=== PATIENT | male | born 1995 | race African-American/Black ===

== ENCOUNTER 2018-12-11 06:35 | Emergency (ER) | payer OTHER ==
[2018-12-11 06:43] VITALS: BP 122/79; PULSE 44; RESP 16; TEMP 97.9
[2018-12-11] MEDS ORDERED: ACET/COD 300 MG/30 MG STARTER PACK 6 TAB BTL PO STA (06:54)
--- NOTE | 2018-12-11 06:55 | ED ---
ENT HPI - General Chief complaint: Dental/Oral Stated complaint: swollen face Time Seen by Provider: 12/11/18 06:46 Source: patient, RN notes reviewed Mode of arrival: ambulatory Limitations: no limitations - History of Present Illness Initial comments: 23-year-old male presents emergency from chief complaint left lower dental pain. Patient states it started last 24 hours. He states that he did have a dental fracture happened a few months ago. Patient states that he is currently getting his dental insurance figured out. He reports no fevers chills he does admit to some swelling the left lower aspect. Patient denies any difficulty swallowing denies headache or dizziness no neck pain. Patient offers no other complaints. - Related Data Previous Rx's Medication Instructions Recorded Ibuprofen [Motrin] 600 mg PO Q8HR PRN #30 tab 12/11/18 Penicillin V Potassium [Pen Vee K] 500 mg PO QID #40 tablet 12/11/18 Allergies Allergy/AdvReac Type Severity Reaction Status Date / Time No Known Allergies Allergy Verified 12/11/18 06:43 Review of Systems ROS Statement: Those systems with pertinent positive or pertinent negative responses have been documented in the HPI. ROS Other: All systems not noted in ROS Statement are negative. Past Medical History Past Medical History: Asthma Additional Past Medical History / Comment(s): low heart rate History of Any Multi-Drug Resistant Organisms: None Reported Past Surgical History: No Surgical Hx Reported Past Psychological History: No Psychological Hx Reported Smoking Status: Never smoker Past Alcohol Use History: None Reported Past Drug Use History: Marijuana General Exam General appearance: alert, in no apparent distress Head exam: Present: atraumatic, normocephalic, normal inspection Eye exam: Present: normal appearance, PERRL, EOMI. Absent: scleral icterus, conjunctival injection, periorbital swelling ENT exam: Present: mucous membranes moist, TM's normal bilaterally, normal external ear exam. Absent: normal oropharynx (Dental fracture left lower, no drainable abscess mild swelling along the mandibular region no trismus) Neck exam: Present: normal inspection, full ROM. Absent: tenderness, meningismus, lymphadenopathy Respiratory exam: Present: normal lung sounds bilaterally. Absent: respiratory distress, wheezes, rales, rhonchi, stridor Cardiovascular Exam: Present: regular rate, normal rhythm, normal heart sounds. Absent: systolic murmur, diastolic murmur, rubs, gallop, clicks Course Vital Signs 12/11/18 06:38 Temperature 97.9 F Pulse Rate 44 L Respiratory 16 Rate Blood Pressure 122/79 O2 Sat by Pulse 100 Oximetry Medical Decision Making - Medical Decision Making 22-year-old male present emergency from for left lower dental pain. Patient does have notable dental fracture with mild swelling no abscess that is drainable. Patient be discharged with Pen-Vee K, ibuprofen. Patient follow-up with the dental clinic or local dentist. Disposition Clinical Impression: Fracture of tooth, Dental abscess Disposition: HOME SELF-CARE Condition: Stable Instructions (If sedation given, give patient instructions): Dental Abscess (ED) Additional Instructions: Please return to the Emergency Department if symptoms worsen or any other concerns. Prescriptions: Ibuprofen [Motrin] 600 mg PO Q8HR PRN #30 tab PRN Reason: Pain Penicillin V Potassium [Pen Vee K] 500 mg PO QID #40 tablet Is patient prescribed a controlled substance at d/c from ED?: No Referrals: None,Stated [Primary Care Provider] - 1-2 days Time of Disposition: 06:55
== END 2018-12-11 07:03 | disposition home or self-care (01) ==
LOC: EC 06:35
DX: S02.5XXA Fracture of tooth (traumatic), initial encounter for closed fracture (principal); K04.7 Periapical abscess without sinus
CPT/HCPCS: 99283

== ENCOUNTER 2019-03-13 20:26 | Emergency (ER) | payer OTHER ==
[2019-03-13 20:32] VITALS: BP 128/70; PULSE 57; RESP 18; TEMP 98.9
[2019-03-13] MEDS ORDERED: AMOXIC-POT CLAV 875MG STARTER 2 EACH TABLET PO STA (20:49)
[2019-03-13] MEDS ORDERED: ACET/COD 300 MG/30 MG STARTER PACK 6 TAB BTL PO STA (20:50)
--- NOTE | 2019-03-13 20:50 | ED ---
ENT HPI - General Chief complaint: Dental/Oral Stated complaint: Abcess tooth Time Seen by Provider: 03/13/19 20:38 Source: patient Mode of arrival: ambulatory Limitations: no limitations - History of Present Illness Initial comments: 23-year-old male presenting for chief complaint of left lower dental pain. Patient states a cracked a tooth a few days prior he states his dental pain since. Patient states that he now feels like his left lower jaw is swollen. Patient concern of developing abscess as this is happened in the past patient denies any swelling of the neck difficulty breathing rash swelling below the tongue fever or flulike symptoms. Patient denies any recent antibiotic use. Patient states he recently reinstated his insurance and now wants to get this taken care of. Remainder review of system negative - Related Data Previous Rx's Medication Instructions Recorded Ibuprofen [Motrin] 600 mg PO Q8HR PRN #30 tab 12/11/18 Penicillin V Potassium [Pen Vee K] 500 mg PO QID #40 tablet 12/11/18 Amoxicillin/Potassium Clav 1 tab PO Q12HR 10 Days #20 tab 03/13/19 [Augmentin 875-125 Tablet] Allergies Allergy/AdvReac Type Severity Reaction Status Date / Time No Known Allergies Allergy Verified 03/13/19 20:32 Review of Systems ROS Statement: Those systems with pertinent positive or pertinent negative responses have been documented in the HPI. ROS Other: All systems not noted in ROS Statement are negative. Past Medical History Past Medical History: Asthma Additional Past Medical History / Comment(s): low heart rate History of Any Multi-Drug Resistant Organisms: None Reported Past Surgical History: No Surgical Hx Reported Past Psychological History: No Psychological Hx Reported Smoking Status: Never smoker Past Alcohol Use History: None Reported Past Drug Use History: Marijuana General Exam - General Exam Comments Initial Comments: General: The patient is awake and alert, in no distress, and does not appear acutely ill. Eye: Pupils are equal, round and reactive to light, extra-ocular movements are intact. No nystagmus. There is normal conjunctiva bilaterally. No signs of icterus. Ears, nose, mouth and throat: There are moist mucous membranes and no oral lesions. Tooth #19 is cracked, pain to percussion, small area of swelling adjacent gum. no large fluctuance noted. No swelling or pain. The tenderness falling or painful ankle the mandible. Neck: The neck is supple, there is no tenderness or JVD. Cardiovascular: There is a regular rate and rhythm. No murmur, rub or gallop is appreciated. Respiratory: Lungs are clear to auscultation, respirations are non-labored, breath sounds are equal. No wheezes, stridor, rales, or rhonchi. Musculoskeletal: Normal ROM, no tenderness. Strength 5/5. Sensation intact. Pulses equal bilaterally 2+. Neurological: A&O x 3. CN II-XII intact grossly, There are no obvious motor or sensory deficits. Coordination appears grossly intact. Speech is normal. Skin: Skin is warm and dry and no rashes or lesions are noted. Psychiatric: Cooperative, appropriate mood & affect, normal judgment. Limitations: no limitations Course Vital Signs 03/13/19 20:30 Temperature 98.9 F Pulse Rate 57 L Respiratory 18 Rate Blood Pressure 128/70 O2 Sat by Pulse 100 Oximetry Medical Decision Making - Medical Decision Making 23-year-old male presented for left lower dental pain. Small area of swelling adjacent to tooth #19 attempted drainage however only small amount of blood. Concern for potential developing abscess. Patient shows no sign systemic signs of infection nor Franklin's angina. He appears well nontoxic and will be discharged with oral antibiotics and instruction to follow up with dentist within the next 2-3 days patient is agreeable to Plan discharge at this time Disposition Clinical Impression: Dental abscess Disposition: HOME SELF-CARE Condition: Good Instructions (If sedation given, give patient instructions): Dental Abscess (ED) Additional Instructions: Please use medication as discussed. Please follow-up with dentist in next 2-3 days. Please return to emergency room if the symptoms increase or worsen or for any other concerns, increased swelling, swelling below the tongue, of neck, difficulty breathing/swallowing, fevers or flu like symptoms. Prescriptions: Amoxicillin/Potassium Clav [Augmentin 875-125 Tablet] 1 tab PO Q12HR 10 Days #20 tab Is patient prescribed a controlled substance at d/c from ED?: No Referrals: None,Stated [Primary Care Provider] - 1-2 days Time of Disposition: 20:49
== END 2019-03-13 21:10 | disposition home or self-care (01) ==
LOC: EC 20:26
DX: K04.7 Periapical abscess without sinus (principal)
CPT/HCPCS: 41800; 99282

== ENCOUNTER 2019-04-30 10:44 | Observation (INO) | payer OTHER ==
[2019-04-30] MEDS ORDERED: SODIUM CHLORIDE 0.9% 1,000 ML IV STA ×2 (12:08→12:39)
[2019-04-30] MEDS ORDERED: ONDANSETRON 4 MG/2 ML VIAL IVP STA (12:08)
[2019-04-30] MEDS ORDERED: HYDROmorphone 1 MG/ML 1 ML SYRINGE IVP STA (12:08)
--- NOTE | 2019-04-30 12:14 | ED ---
General Adult HPI - General Chief complaint: Abdominal Pain Stated complaint: abd pain/vomiting Time Seen by Provider: 04/30/19 11:35 Source: patient, family, RN notes reviewed Mode of arrival: wheelchair Limitations: no limitations - History of Present Illness Initial comments: Patient is a pleasant 23-year-old male presenting to the emergency Department with nausea vomiting and abdominal discomfort. Onset of symptoms was last night. Symptoms have progressively worsened. Patient has abdominal discomfort, more so over the lower abdomen. Patient states there was discomfort in the car with any bumps. Discomfort does increase with movements. No fevers. No diarrhea. No history of similar symptoms previously. - Related Data Previous Rx's Medication Instructions Recorded Ibuprofen [Motrin] 600 mg PO Q8HR PRN #30 tab 12/11/18 Penicillin V Potassium [Pen Vee K] 500 mg PO QID #40 tablet 12/11/18 Amoxicillin/Potassium Clav 1 tab PO Q12HR 10 Days #20 tab 03/13/19 [Augmentin 875-125 Tablet] Allergies Allergy/AdvReac Type Severity Reaction Status Date / Time No Known Allergies Allergy Verified 03/13/19 20:32 Review of Systems ROS Statement: Those systems with pertinent positive or pertinent negative responses have been documented in the HPI. ROS Other: All systems not noted in ROS Statement are negative. Constitutional: Denies: fever, chills Eyes: Denies: eye pain ENT: Denies: ear pain Respiratory: Denies: cough Cardiovascular: Denies: chest pain Endocrine: Denies: fatigue Gastrointestinal: Reports: abdominal pain, nausea, vomiting. Denies: diarrhea Musculoskeletal: Denies: back pain Skin: Denies: rash Neurological: Denies: weakness Past Medical History Past Medical History: Asthma Additional Past Medical History / Comment(s): low heart rate History of Any Multi-Drug Resistant Organisms: None Reported Past Surgical History: No Surgical Hx Reported Past Psychological History: No Psychological Hx Reported Smoking Status: Never smoker Past Alcohol Use History: None Reported Past Drug Use History: Marijuana General Exam Limitations: no limitations General appearance: alert, in no apparent distress Head exam: Present: normocephalic Eye exam: Present: normal appearance, PERRL ENT exam: Present: normal oropharynx Neck exam: Present: normal inspection Respiratory exam: Present: normal lung sounds bilaterally Cardiovascular Exam: Present: regular rate, normal rhythm GI/Abdominal exam: Present: soft, tenderness (Mild diffuse tenderness, moderate right lower quadrant tenderness). Absent: distended, guarding, rebound, rigid Extremities exam: Present: normal inspection Neurological exam: Present: alert Psychiatric exam: Present: normal affect, normal mood Skin exam: Present: normal color Course Vital Signs 04/30/19 04/30/19 04/30/19 11:13 12:33 12:40 Temperature 97.3 F L Pulse Rate 42 L 47 L Respiratory 18 22 Rate Blood Pressure 138/79 159/78 O2 Sat by Pulse 99 100 100 Oximetry 04/30/19 13:00 Temperature Pulse Rate 56 L Respiratory 20 Rate Blood Pressure 139/91 O2 Sat by Pulse 100 Oximetry EKG Findings - EKG Comments: EKG Findings:: Sinus bradycardia with rate of 33. SC 184. QRS 104. QT 494. QTC 365. Normal axis. LVH criteria with repolarization changes. Medical Decision Making - Medical Decision Making Patient reevaluated and abdomen is less tender. Computed tomography scan does not make specific mention of appendix. Patient states he still has significant discomfort with standing upright and movement. Patient and family updated on results and plan. Case was discussed in detail with Dr. Gutiérrez, who will admit covering for hospital call and requests CBC in the morning. - Lab Data Result diagrams: 04/30/19 12:32 04/30/19 12:32 Lab Results 04/30/19 04/30/19 04/30/19 Range/Units 12:32 12:32 12:32 WBC 9.0 (3.8-10.6) k/uL RBC 4.84 (4.30-5.90) m/uL Hgb 14.0 (13.0-17.5) gm/dL Hct 43.6 (39.0-53.0) % MCV 89.9 (80.0-100.0) fL MCH 28.9 (25.0-35.0) pg MCHC 32.1 (31.0-37.0) g/dL RDW 12.8 (11.5-15.5) % Plt Count 227 (150-450) k/uL Neutrophils % 76 % Lymphocytes % 17 % Monocytes % 5 % Eosinophils % 1 % Basophils % 0 % Neutrophils # 6.8 (1.3-7.7) k/uL Lymphocytes # 1.5 (1.0-4.8) k/uL Monocytes # 0.4 (0-1.0) k/uL Eosinophils # 0.1 (0-0.7) k/uL Basophils # 0.0 (0-0.2) k/uL Poikilocytosis Slight PT (9.0-12.0) sec INR (<1.2) APTT (22.0-30.0) sec Sodium 142 (137-145) mmol/L Potassium 4.2 (3.5-5.1) mmol/L Chloride 105 (98-107) mmol/L Carbon Dioxide 25 (22-30) mmol/L Anion Gap 12 mmol/L BUN 12 (9-20) mg/dL Creatinine 0.79 (0.66-1.25) mg/dL Est GFR (CKD-EPI)AfAm >90 (>60 ml/min/1.73 sqM) Est GFR (CKD-EPI)NonAf >90 (>60 ml/min/1.73 sqM) Glucose 102 H (74-99) mg/dL Calcium 10.1 (8.4-10.2) mg/dL Total Bilirubin 1.0 (0.2-1.3) mg/dL AST 37 (17-59) U/L ALT 16 (4-49) U/L Alkaline Phosphatase 81 (38-126) U/L Total Protein 9.0 H (6.3-8.2) g/dL Albumin 5.3 H (3.5-5.0) g/dL Amylase 102 (30-110) U/L Lipase 73 (23-300) U/L Urine Color Yellow Urine Appearance Clear (Clear) Urine pH 6.0 (5.0-8.0) Ur Specific Standish 1.030 (1.001-1.035) Urine Protein Trace H (Negative) Urine Glucose (UA) Negative (Negative) Urine Ketones Negative (Negative) Urine Blood Negative (Negative) Urine Nitrite Negative (Negative) Urine Bilirubin Negative (Negative) Urine Urobilinogen 2.0 (<2.0) mg/dL Ur Leukocyte Esterase Negative (Negative) 04/30/19 Range/Units 12:32 WBC (3.8-10.6) k/uL RBC (4.30-5.90) m/uL Hgb (13.0-17.5) gm/dL Hct (39.0-53.0) % MCV (80.0-100.0) fL MCH (25.0-35.0) pg MCHC (31.0-37.0) g/dL RDW (11.5-15.5) % Plt Count (150-450) k/uL Neutrophils % % Lymphocytes % % Monocytes % % Eosinophils % % Basophils % % Neutrophils # (1.3-7.7) k/uL Lymphocytes # (1.0-4.8) k/uL Monocytes # (0-1.0) k/uL Eosinophils # (0-0.7) k/uL Basophils # (0-0.2) k/uL Poikilocytosis PT 10.9 (9.0-12.0) sec INR 1.1 (<1.2) APTT 24.9 (22.0-30.0) sec Sodium (137-145) mmol/L Potassium (3.5-5.1) mmol/L Chloride (98-107) mmol/L Carbon Dioxide (22-30) mmol/L Anion Gap mmol/L BUN (9-20) mg/dL Creatinine (0.66-1.25) mg/dL Est GFR (CKD-EPI)AfAm (>60 ml/min/1.73 sqM) Est GFR (CKD-EPI)NonAf (>60 ml/min/1.73 sqM) Glucose (74-99) mg/dL Calcium (8.4-10.2) mg/dL Total Bilirubin (0.2-1.3) mg/dL AST (17-59) U/L ALT (4-49) U/L Alkaline Phosphatase (38-126) U/L Total Protein (6.3-8.2) g/dL Albumin (3.5-5.0) g/dL Amylase (30-110) U/L Lipase (23-300) U/L Urine Color Urine Appearance (Clear) Urine pH (5.0-8.0) Ur Specific Standish (1.001-1.035) Urine Protein (Negative) Urine Glucose (UA) (Negative) Urine Ketones (Negative) Urine Blood (Negative) Urine Nitrite (Negative) Urine Bilirubin (Negative) Urine Urobilinogen (<2.0) mg/dL Ur Leukocyte Esterase (Negative) - Radiology Data Radiology results: report reviewed (Computed tomography scan shows small amount of fluid in the pelvis. Moderate colonic fecal stasis.) Disposition Clinical Impression: Abdominal pain Disposition: ADMITTED IP TO THIS HOSP Is patient prescribed a controlled substance at d/c from ED?: No Referrals: None,Stated [Primary Care Provider] - 1-2 days Decision Time: 15:31
[2019-04-30 13:02] LABS: Basophils % (A) 0 %; Eosinophils # (A) 0.1 k/uL (0-0.7); Eosinophils % (A) 1 %; HCT 43.6 % (39.0-53.0); Lymphocytes # (A) 1.5 k/uL (1.0-4.8); Lymphocytes % (A) 17 %; MCH 28.9 pg (25.0-35.0); MCHC 32.1 g/dL (31.0-37.0); MCV 89.9 fL (80.0-100.0); Monocytes # (A) 0.4 k/uL (0-1.0); Monocytes % (A) 5 %; Neutrophils # (A) 6.8 k/uL (1.3-7.7); Neutrophils % (A) 76 %; Platelet Count 227 k/uL (150-450); Poikilocytosis Slight; RBC 4.84 m/uL (4.30-5.90); RDW 12.8 % (11.5-15.5)
[2019-04-30 13:08] LABS: Appearance,Urine Clear (Clear); Bilirubin,Urine Negative (Negative); Blood,Urine Negative (Negative); Color,Urine Yellow; Glucose,Urine (UA) Negative (Negative); Ketones,Urine Negative (Negative); Leukocyte Esterase,Urine Negative (Negative); Nitrite,Urine Negative (Negative); Protein,Urine Trace (Negative)
[2019-04-30 13:10] LABS: INR 1.1 (<1.2); Partial Thromboplastin Time 24.9 sec (22.0-30.0); Prothrombin Time 10.9 sec (9.0-12.0)
[2019-04-30 13:11] LABS: African American GFR (CKD) >90 (>60 ml/min/1.73 sqM); Anion Gap 12 mmol/L; Blood Urea Nitrogen 12 mg/dL (9-20); Carbon Dioxide 25 mmol/L (22-30); Chloride 105 mmol/L (98-107); Glucose 102 mg/dL (74-99); Potassium 4.2 mmol/L (3.5-5.1); Sodium 142 mmol/L (137-145)
[2019-04-30 13:12] LABS: ALT 16 U/L (4-49); AST 37 U/L (17-59); Albumin 5.3 g/dL (3.5-5.0); Alkaline Phosphatase 81 U/L (38-126); Amylase 102 U/L (30-110); Calcium 10.1 mg/dL (8.4-10.2); Non-African American GFR(CKD) >90 (>60 ml/min/1.73 sqM)
--- NOTE | 2019-04-30 14:19 | CT ---
EXAMINATION TYPE: CT abdomen pelvis w con DATE OF EXAM: 04/30/2019 COMPARISON: Abdomen and pelvis of 01/21/2010. HISTORY: Pain and vomiting CT DLP: 654.9 mGycm, Automated Exposure Control for Dose Reduction was Utilized. CONTRAST: CT scan of the abdomen and pelvis is performed without oral but with IV Contrast, patient injected wi th 100 mL of Isovue 300. FINDINGS: LUNG BASES: No significant abnormality is appreciated. LIVER/GB: No significant abnormality is appreciated. PANCREAS: No significant abnormality is seen. SPLEEN: No significant abnormality is seen. ADRENALS: No significant abnormality is seen. KIDNEYS: No significant abnormality is seen. BOWEL: Suboptimal evaluation of bowel in this patient has virtually no intra-abdominal fat and lack o f enteric contrast. No suspicious small or large bowel dilatation. Stomach is poorly distended and th us suboptimally evaluated. [id number] prominence of fecal material in the right and proximal tr ansverse colon. [id number] prominence of fecal material in the sigmoid colon. PROSTATE/SEMINAL VESICLES: No gross abnormality seen. LYMPH NODES: No greater than 1cm abdominal or pelvic lymph nodes are appreciated. OSSEOUS STRUCTURES: No significant abnormality is seen. OTHER: Small amount of free fluid in the pelvis axial image 66 of uncertain etiology. IMPRESSION: Small amount of free fluid in the pelvis of uncertain etiology on current study. Overall nonobstructive bowel gas pattern. [id number] diffuse colonic fecal stasis is thought present. C orrelate clinically.
[2019-04-30] MEDS ORDERED: HYDROmorphone 0.5 MG/0.5 ML SYRINGE IVP PRN (15:31)
[2019-04-30] MEDS ORDERED: NALOXONE 0.4 MG/ML 1 ML VIAL IV PRN (15:31)
[2019-04-30] MEDS ORDERED: ONDANSETRON 4 MG/2 ML VIAL IVP PRN (15:31)
[2019-04-30] MEDS ORDERED: HYDROmorphone 1 MG/ML 1 ML SYRINGE IVP PRN (15:31)
--- NOTE | 2019-04-30 16:52 | P.GSHP ---
History of Present Illness H&P Date: 04/30/19 Chief Complaint: Abdominal pain The 23-year-old male who has complaints of abdominal pain. Patient states he has pain mainly in the periumbilical area. Patient awake CAT scan showed evidence of fecal retention. States his pain is a 6-8 out of 10. He's been admitted to the hospital for observation. Past Medical History Past Medical History: Asthma Additional Past Medical History / Comment(s): low heart rate History of Any Multi-Drug Resistant Organisms: None Reported Past Surgical History: No Surgical Hx Reported Past Psychological History: No Psychological Hx Reported Smoking Status: Never smoker Past Alcohol Use History: None Reported Past Drug Use History: Marijuana Medications and Allergies Home Medications Medication Instructions Recorded Confirmed Type No Known Home Medications 04/30/19 04/30/19 History Allergies Allergy/AdvReac Type Severity Reaction Status Date / Time No Known Allergies Allergy Verified 04/30/19 16:02 Surgical - Exam Vital Signs Temp Pulse Resp BP Pulse Ox 97.3 F L 42 L 18 138/79 99 04/30/19 11:13 04/30/19 11:13 04/30/19 11:13 04/30/19 11:13 04/30/19 11:13 - General well developed, well nourished, no distress - Eyes PERRL - ENT normal pinna - Neck no masses - Respiratory normal expansion - Cardiovascular Rhythm: regular - Abdomen Mild periumbilical pain Abdomen: soft Results - Labs 04/30/19 12:32 04/30/19 12:32 Abnormal Lab Results - Last 24 Hours (Table) 04/30/19 04/30/19 Range/Units 12:32 12:32 Glucose 102 H (74-99) mg/dL Total Protein 9.0 H (6.3-8.2) g/dL Albumin 5.3 H (3.5-5.0) g/dL Urine Protein Trace H (Negative) Diabetes panel 04/30/19 Range/Units 12:32 Sodium 142 (137-145) mmol/L Potassium 4.2 (3.5-5.1) mmol/L Chloride 105 (98-107) mmol/L Carbon Dioxide 25 (22-30) mmol/L BUN 12 (9-20) mg/dL Creatinine 0.79 (0.66-1.25) mg/dL Glucose 102 H (74-99) mg/dL Calcium 10.1 (8.4-10.2) mg/dL AST 37 (17-59) U/L ALT 16 (4-49) U/L Alkaline Phosphatase 81 (38-126) U/L Total Protein 9.0 H (6.3-8.2) g/dL Albumin 5.3 H (3.5-5.0) g/dL Calcium panel 04/30/19 Range/Units 12:32 Calcium 10.1 (8.4-10.2) mg/dL Albumin 5.3 H (3.5-5.0) g/dL Pituitary panel 04/30/19 Range/Units 12:32 Sodium 142 (137-145) mmol/L Potassium 4.2 (3.5-5.1) mmol/L Chloride 105 (98-107) mmol/L Carbon Dioxide 25 (22-30) mmol/L BUN 12 (9-20) mg/dL Creatinine 0.79 (0.66-1.25) mg/dL Glucose 102 H (74-99) mg/dL Calcium 10.1 (8.4-10.2) mg/dL Adrenal panel 04/30/19 Range/Units 12:32 Sodium 142 (137-145) mmol/L Potassium 4.2 (3.5-5.1) mmol/L Chloride 105 (98-107) mmol/L Carbon Dioxide 25 (22-30) mmol/L BUN 12 (9-20) mg/dL Creatinine 0.79 (0.66-1.25) mg/dL Glucose 102 H (74-99) mg/dL Calcium 10.1 (8.4-10.2) mg/dL Total Bilirubin 1.0 (0.2-1.3) mg/dL AST 37 (17-59) U/L ALT 16 (4-49) U/L Alkaline Phosphatase 81 (38-126) U/L Total Protein 9.0 H (6.3-8.2) g/dL Albumin 5.3 H (3.5-5.0) g/dL Assessment and Plan Assessment: Abdominal pain of uncertain etiology.. Patient will be observed overnight.
[2019-04-30] MEDS: SODIUM CHLORIDE 0.9% 1,000 ML IV SCH (17:05)
[2019-04-30 18:07] LABS: Glucose,Whole Blood 95 mg/dL (75-99)
[2019-04-30] MEDS: ONDANSETRON 4 MG/2 ML VIAL IVP PRN (22:46)
[2019-04-30 23:16] VITALS: RESP 16
[2019-05-01] MEDS: SODIUM CHLORIDE 0.9% 1,000 ML IV SCH (05:45)
[2019-05-01 06:09] VITALS: BP 102/61; PULSE 46; TEMP 98.4
[2019-05-01] MEDS: ONDANSETRON 4 MG/2 ML VIAL IVP PRN (08:19)
[2019-05-01] MEDS ORDERED: PANTOPRAZOLE 40 MG/10 ML VIAL IV SCH (09:00)
[2019-05-01] MEDS ORDERED: BISACODYL 10 MG SUPP RECTAL STA (10:19)
[2019-05-01] MEDS ORDERED: LACTULOSE 20 GM/30 ML CUP PO ONE (10:19)
--- NOTE | 2019-05-01 10:59 | P.DS ---
Providers Date of admission: 04/30/19 15:33 Expected date of discharge: 05/01/19 Attending physician: Jose Juan Liu Primary care physician: Stated None Hospital Course: 23-year-old male who presented to the emergency room with a chief complaint of abdominal pain. CT abdomen and pelvis was performed revealing fecal stasis but no acute abnormality. Patient was started on a clear liquid diet and advanced as tolerated. He received a Dulcolax suppository and lactulose for fecal retention during his hospitalization. He was deemed stable for discharge home per Dr. Liu. He is to follow-up outpatient. Please see EMR for further hospital course details. Discharge diagnosis 1. Abdominal pain 2. Fecal stasis Nurse practitioner note has been reviewed by physician. Signing provider agrees with the documented findings, assessment, and plan of care. Plan - Discharge Summary Discharge Rx Participant: No New Discharge Prescriptions: No Action No Known Home Medications Discharge Medication List No Known Home Medications 04/30/19 [History] Follow up Appointment(s)/Referral(s): None,Stated [Primary Care Provider] - 1-2 days Jose Juan Liu MD [STAFF PHYSICIAN] - As Needed
== END 2019-05-01 12:12 | disposition home or self-care (01) ==
LOC: EC 10:44 → 6NMEDSUR 15:33
PROVIDERS: ADMIT Surgery; ATTEND Surgery
DX: R10.9 Unspecified abdominal pain (principal); K59.8 Other specified functional intestinal disorders; J45.909 Unspecified asthma, uncomplicated
CPT/HCPCS: 96376 ×2; 96361 ×2; 96375 ×2; 96374; 99285; 36415; 93005; 80053; 82150; 83690; 85025; 85610; 85730; 81003; 74177; G0378 ×2; J2405 ×2; J1170; C9113; Q9967

== ENCOUNTER 2019-12-11 09:06 | Emergency (ER) | payer OTHER ==
[2019-12-11 09:16] VITALS: BP 137/80; PULSE 50; RESP 18; TEMP 97
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
== END 2019-12-11 09:31 | disposition home or self-care (01) ==
LOC: EC 09:06
DX: L70.9 Acne, unspecified (principal)
CPT/HCPCS: 99283

== ENCOUNTER 2020-02-28 13:16 | Emergency (ER) | payer OTHER ==
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
[2020-02-28 14:04] LABS: Basophils # (A) 0.1 k/uL (0-0.2); Basophils % (A) 1 %; Eosinophils % (A) 1 %; HCT 41.7 % (39.0-53.0); HGB 14.3 gm/dL (13.0-17.5); Lymphocytes # (A) 2.1 k/uL (1.0-4.8); Lymphocytes % (A) 36 %; MCH 30.2 pg (25.0-35.0); MCHC 34.2 g/dL (31.0-37.0); MCV 88.3 fL (80.0-100.0); Mean Platelet Volume 7.5; Monocytes # (A) 0.5 k/uL (0-1.0); Monocytes % (A) 8 %; Neutrophils # (A) 3.1 k/uL (1.3-7.7); Neutrophils % (A) 53 %; Platelet Count 247 k/uL (150-450); RBC 4.73 m/uL (4.30-5.90); RDW 12.5 % (11.5-15.5); WBC 5.9 k/uL (3.8-10.6)
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
[2020-02-28 14:12] LABS: ALT 18 U/L (4-49); AST 38 U/L (17-59); African American GFR (CKD) >90 (>60 ml/min/1.73 sqM); Albumin 4.9 g/dL (3.5-5.0); Alcohol <10 mg/dL; Alkaline Phosphatase 73 U/L (38-126); Anion Gap 9 mmol/L; Blood Urea Nitrogen 8 mg/dL (9-20); Carbon Dioxide 24 mmol/L (22-30); Chloride 105 mmol/L (98-107); Creatine Kinase 824 U/L (55-170); Glucose 100 mg/dL (74-99); INR 1.1 (<1.2); Non-African American GFR(CKD) >90 (>60 ml/min/1.73 sqM); Partial Thromboplastin Time 24.2 sec (22.0-30.0); Potassium 4.2 mmol/L (3.5-5.1); Prothrombin Time 11.1 sec (9.0-12.0); Sodium 138 mmol/L (137-145); Total Bilirubin 0.8 mg/dL (0.2-1.3); Total Protein 8.3 g/dL (6.3-8.2)
[2020-02-28] MEDS ORDERED: MORPHINE SULFATE 4 MG/ML SYRINGE IVP STA ×2 (14:14→16:10)
[2020-02-28] MEDS ORDERED: DIPH,PERTUS(ACELL)TETVAC-LF 0.5 ML VIAL IM ONE (14:22)
[2020-02-28] MEDS ORDERED: ONDANSETRON 4 MG/2 ML VIAL IVP STA (14:41)
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
[2020-02-28] MEDS ORDERED: KETOROLAC 15 MG/ML 1 ML VIAL IVP STA (16:10)
[2020-02-28 16:18] LABS: Appearance,Urine Clear (Clear); Bilirubin,Urine Negative (Negative); Blood,Urine Negative (Negative); Color,Urine Light Yellow; Glucose,Urine (UA) Negative (Negative); Ketones,Urine Negative (Negative); Leukocyte Esterase,Urine Negative (Negative); Nitrite,Urine Negative (Negative); PH, Urine 7.5 (5.0-8.0); Protein,Urine Negative (Negative); Specific Gravity,Urine 1.029 (1.001-1.035); Urobilinogen,Urine <2.0 mg/dL (<2.0)
[2020-02-28 16:27] LABS: Cocaine Screen,Urine Not Detected (NotDetected); Opiate Screen,Urine Detected (NotDetected); Phencyclidine Screen,Urine Not Detected (NotDetected); Urn Cannabinoid Scrn Detected (NotDetected)
[2020-02-28 16:28] LABS: Amphetamine Screen,Urine Not Detected (NotDetected); Barbiturate Screen,Urine Not Detected (NotDetected); Benzodiazepines Screen,Urine Not Detected (NotDetected); Methadone Screen, Urine Not Detected (NotDetected); Oxycodone Screen, Urine Not Detected (NotDetected); Tricyclic Antidepressant,Urine Not Detected (NotDetected)
[2020-02-28] MEDS ORDERED: BACITRACIN OINT 1 EACH PACKET TOPICAL ONE (16:40)
[2020-02-28] MEDS ORDERED: ACET/COD 300 MG/30 MG STARTER PACK 6 TAB BTL PO STA (16:42)
[2020-02-28] MEDS ORDERED: IBUPROFEN 600 MG STARTER PACK 4 TAB BTL PO STA (16:42)
[2020-02-28] MEDS ORDERED: Acetaminophen-Codeine 300-30mg TAB PO STA (16:42)
[2020-02-28 21:15] VITALS: BP 140/80; PULSE 64; RESP 18; TEMP 98.4
== END 2020-02-28 17:00 | disposition home or self-care (01) ==
LOC: EC 13:16
DX: S06.9X1A Unspecified intracranial injury with loss of consciousness of 30 minutes or less, initial encounter (principal); M25.532 Pain in left wrist; M25.561 Pain in right knee; Z23 Encounter for immunization; V27.4XXA Motorcycle driver injured in collision with fixed or stationary object in traffic accident, initial encounter; Y92.410 Unspecified street and highway as the place of occurrence of the external cause
CPT/HCPCS: 36415; 93005; 80053; 82550; 84484; 85025; 85610; 85730; 81003; 80306; 80320; 73130; 72170; 73080; 73110; 73562; 71045; 72125; 72131; 70450; 74177; 90715; 99285; 96374; 96375 ×2; 96376; 90471; 29125; J2270; J2405; J1885; Q9967

== ENCOUNTER 2020-07-21 10:56 | Emergency (ER) | payer OTHER ==
[2020-07-21 11:22] VITALS: BP 126/95; PULSE 68; RESP 18; TEMP 98.4
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
== END 2020-07-21 12:44 | disposition home or self-care (01) ==
LOC: EC 10:56
DX: Z20.822 Contact with and (suspected) exposure to COVID-19 (principal); J45.909 Unspecified asthma, uncomplicated; F12.90 Cannabis use, unspecified, uncomplicated
CPT/HCPCS: 87635; 99283

== ENCOUNTER 2020-08-08 00:45 | Emergency (ER) | payer BC, OTHER ==
[2020-08-08 00:50] VITALS: BP 135/77; PULSE 65; RESP 20; TEMP 98.2
[2020-08-08] MEDS ORDERED: IBUPROFEN 800 MG TAB PO STA (01:14)
[2020-08-08] MEDS ORDERED: AMOXIC-POT CLAV 875-125MG 1 EACH TAB PO STA (01:14)
--- NOTE | 2020-08-08 01:14 | ED ---
ENT HPI - General Chief complaint: Dental/Oral Stated complaint: Facial swelling Time Seen by Provider: 08/08/20 00:59 Source: patient Mode of arrival: ambulatory Limitations: no limitations - History of Present Illness Initial comments: 24-year-old male presents emergency Department with a chief complaint abdominal pain times several days. States about 1 month ago he try to open a bottle and fractured his tooth now he has developed an infection in the area. Patient reports he also developed mild left-sided swelling in the region. States the infection is located in the left lower region. Denies any fevers or chills. Area is tender to touch. He has not seen a dentist and was symptom. Denies fevers chills. Not diabetic. - Related Data Previous Rx's Medication Instructions Recorded Amoxicillin/Potassium Clav 1 tab PO Q12HR #20 tab 08/08/20 [Augmentin 875-125 Tablet] Allergies Allergy/AdvReac Type Severity Reaction Status Date / Time No Known Allergies Allergy Verified 08/08/20 00:50 Review of Systems ROS Statement: Those systems with pertinent positive or pertinent negative responses have been documented in the HPI. ROS Other: All systems not noted in ROS Statement are negative. Past Medical History Past Medical History: Asthma Additional Past Medical History / Comment(s): low heart rate History of Any Multi-Drug Resistant Organisms: None Reported Past Surgical History: No Surgical Hx Reported Past Anesthesia/Blood Transfusion Reactions: No Reported Reaction Past Psychological History: No Psychological Hx Reported Smoking Status: Never smoker Past Alcohol Use History: Occasional Past Drug Use History: Marijuana General Exam Limitations: no limitations General appearance: alert, in no apparent distress Head exam: Present: atraumatic, normocephalic, normal inspection Eye exam: Present: normal appearance, PERRL, EOMI Pupils: Present: normal accommodation ENT exam: Present: normal exam, mucous membranes moist. Absent: normal oropharynx (Multiple dental caries. Partially fractured tooth #21 with surrounding erythema and mild swelling. No signs of an abscess) Neck exam: Present: normal inspection, full ROM. Absent: tenderness Respiratory exam: Present: normal lung sounds bilaterally. Absent: respiratory distress Cardiovascular Exam: Present: regular rate, normal rhythm, normal heart sounds Extremities exam: Present: normal inspection, full ROM, normal capillary refill. Absent: tenderness Back exam: Present: normal inspection, full ROM. Absent: tenderness Neurological exam: Present: alert, oriented X3, normal gait Psychiatric exam: Present: normal affect, normal mood Skin exam: Present: warm, dry, intact, normal color Course Vital Signs 08/08/20 00:48 Temperature 98.2 F Pulse Rate 65 Respiratory 20 Rate Blood Pressure 135/77 O2 Sat by Pulse 100 Oximetry Medical Decision Making - Medical Decision Making 24-year-old male presents to emergency Department with the chief complaint dental pain. No signs of an abscess. Tooth #20 one partially fractured and infected. He will be started on Augmentin. Given him ibuprofen in the ED. Give him contact information for local [facility]. Return parameters were thoroughly discussed with patient about sending agreeable. Case discussed with Disposition Clinical Impression: Dental caries, Toothache Disposition: HOME SELF-CARE Condition: Stable Instructions (If sedation given, give patient instructions): Toothache (ED) Additional Instructions: Please return to the Emergency Department if symptoms worsen or any other concerns. Follow with a dentist Prescriptions: Amoxicillin/Potassium Clav [Augmentin 875-125 Tablet] 1 tab PO Q12HR #20 tab Is patient prescribed a controlled substance at d/c from ED?: No Referrals: None,Stated [Primary Care Provider] - 1-2 days Time of Disposition: 01:15
== END 2020-08-08 01:36 | disposition home or self-care (01) ==
LOC: EC 00:45
DX: K02.9 Dental caries, unspecified (principal); J45.909 Unspecified asthma, uncomplicated; F12.90 Cannabis use, unspecified, uncomplicated
CPT/HCPCS: 99283

== ENCOUNTER 2021-03-08 18:56 | Emergency (ER) | payer OTHER ==
[2021-03-08 19:01] VITALS: BP 122/67; PULSE 64; RESP 16; TEMP 97.9
[2021-03-08] MEDS ORDERED: KETOROLAC 30 MG/ML 1 ML VIAL IM STA (19:08)
--- NOTE | 2021-03-08 19:32 | XR ---
EXAMINATION TYPE: XR forearm LT DATE OF EXAM: 03/08/2021 COMPARISON: NONE HISTORY: Fall. Wrist pain TECHNIQUE: 2 views FINDINGS: There is acute transverse fracture distal radial metaphysis. This is 1.5 cm from the wrist joint. There is no significant displacement. There is no dislocation. Distal ulna is intact. Carpal b ones are intact. IMPRESSION: Acute nondisplaced transverse fracture distal radius.
--- NOTE | 2021-03-08 19:33 | XR ---
EXAMINATION TYPE: XR wrist complete LT DATE OF EXAM: 03/08/2021 COMPARISON: NONE HISTORY: Fall. Pain TECHNIQUE: 3 views FINDINGS: Carpal bones are intact. Proximal metacarpals are intact. There is acute transverse nondisplaced fracture distal radial metaphysis. There is no dislocation. Di stal ulna is intact. IMPRESSION: Acute nondisplaced transverse fracture distal radius.
--- NOTE | 2021-03-08 19:34 | ED ---
General Adult HPI - General Chief complaint: Extremity Injury, Upper Stated complaint: wrist injury Time Seen by Provider: 03/08/21 19:04 Source: patient, RN notes reviewed, old records reviewed Mode of arrival: ambulatory Limitations: no limitations - History of Present Illness Initial comments: 25-year-old male with fall, left wrist injury. Patient was skateboarding, fell onto his outstretched left forearm. He had immediate pain in the wrist. He denies head or neck trauma. He denies elbow or shoulder pain. No chest or abdominal pain. Patient is otherwise healthy. - Related Data Previous Rx's Medication Instructions Recorded Amoxicillin/Potassium Clav 1 tab PO Q12HR #20 tab 08/08/20 [Augmentin 875-125 Tablet] Ibuprofen [Motrin] 600 mg PO Q8HR PRN #24 tab 03/08/21 Allergies Allergy/AdvReac Type Severity Reaction Status Date / Time No Known Allergies Allergy Verified 03/08/21 19:01 Review of Systems ROS Statement: Those systems with pertinent positive or pertinent negative responses have been documented in the HPI. ROS Other: All systems not noted in ROS Statement are negative. Past Medical History Past Medical History: Asthma Additional Past Medical History / Comment(s): low heart rate History of Any Multi-Drug Resistant Organisms: None Reported Past Surgical History: No Surgical Hx Reported Past Anesthesia/Blood Transfusion Reactions: No Reported Reaction Past Psychological History: No Psychological Hx Reported Smoking Status: Never smoker Past Alcohol Use History: Occasional Past Drug Use History: Marijuana General Exam Limitations: no limitations General appearance: alert, in no apparent distress Head exam: Present: atraumatic, normocephalic Eye exam: Present: normal appearance, PERRL ENT exam: Present: normal exam Neck exam: Present: normal inspection. Absent: tenderness, meningismus Respiratory exam: Present: normal lung sounds bilaterally. Absent: respiratory distress, wheezes Cardiovascular Exam: Present: regular rate, normal rhythm GI/Abdominal exam: Present: soft. Absent: distended, tenderness, guarding, rebound Extremities exam: Present: other (Left upper extremity: Distal pulses are intact, normal range of motion of the digits, normal cap refill. There is bony tenderness over the distal radius with soft tissue swelling) Neurological exam: Present: alert, oriented X3 Course Vital Signs 03/08/21 18:59 Temperature 97.9 F Pulse Rate 64 Respiratory 16 Rate Blood Pressure 122/67 O2 Sat by Pulse 100 Oximetry Procedures - Orthopedic Splinting/Casting Injury #1 Side: left Upper Extremity Injury Location: short arm Upper Extremity Immobilizer: sugar tong splint, synthetic pre-padded splint, fiberglass cast Other Orthopedic Equipment: other (Sling) Additional Comments: Patient is neurovascularly intact both pre-and post-splinting. Medical Decision Making - Medical Decision Making 25-year-old male with a skateboarding injury to the left wrist. X-rays of the forearm and wrist are performed which showed a nondisplaced fracture of the distal radius. Patient is placed in a splint in the emergency department. He is prescribed anti-inflammatories. He will elevate and ice the extremity. He will follow-up with orthopedics. Disposition Clinical Impression: Distal radius fracture, left Disposition: HOME SELF-CARE Condition: Good Instructions (If sedation given, give patient instructions): Wrist Fracture in Adults (ED) Prescriptions: Ibuprofen [Motrin] 600 mg PO Q8HR PRN #24 tab PRN Reason: Pain Is patient prescribed a controlled substance at d/c from ED?: No Referrals: None,Stated [Primary Care Provider] - 1-2 days Wolf Moses DO [Doctor of Osteopathic Medicine] - 1-2 days Time of Disposition: 19:32
== END 2021-03-08 19:40 | disposition home or self-care (01) ==
LOC: EC 18:56
DX: S52.502A Unspecified fracture of the lower end of left radius, initial encounter for closed fracture (principal); J45.909 Unspecified asthma, uncomplicated; F12.90 Cannabis use, unspecified, uncomplicated; V00.131A Fall from skateboard, initial encounter; Y93.51 Activity, roller skating (inline) and skateboarding
CPT/HCPCS: 99283; 96372; 29125; 73090; 73110; J1885

== ENCOUNTER 2021-03-12 15:27 | Emergency (ER) | payer OTHER ==
[2021-03-12 16:27] VITALS: BP 127/71; PULSE 52; RESP 16; TEMP 98
--- NOTE | 2021-03-12 17:08 | ED ---
Recheck HPI - General Chief Complaint: Recheck/Abnormal Lab/Rx Stated Complaint: L arm injury Time Seen by Provider: 03/12/21 17:07 Source: patient Mode of arrival: ambulatory Limitations: no limitations - History of Present Illness Initial Comments: 25-year-old male patient presents to the emergency department today to have a splint placed on his left wrist. He was seen and evaluated of a couple of days ago was diagnosed with a fractured radius. States his was splint got wet today and he was unable to reapply it. States he does have an orthopedic appointment tomorrow. Denies any new injury. Does report intermittent numbness tingling to the hand. Denies difficulty with movement. Denies taking anything for pain today. Denies any other injuries or concerns. - Related Data Previous Rx's Medication Instructions Recorded Amoxicillin/Potassium Clav 1 tab PO Q12HR #20 tab 08/08/20 [Augmentin 875-125 Tablet] Ibuprofen [Motrin] 600 mg PO Q8HR PRN #24 tab 03/08/21 Allergies Allergy/AdvReac Type Severity Reaction Status Date / Time No Known Allergies Allergy Verified 03/12/21 16:27 Review of Systems ROS Statement: Those systems with pertinent positive or pertinent negative responses have been documented in the HPI. ROS Other: All systems not noted in ROS Statement are negative. Past Medical History Past Medical History: Asthma Additional Past Medical History / Comment(s): low heart rate History of Any Multi-Drug Resistant Organisms: None Reported Past Surgical History: No Surgical Hx Reported Past Anesthesia/Blood Transfusion Reactions: No Reported Reaction Past Psychological History: No Psychological Hx Reported Smoking Status: Never smoker Past Alcohol Use History: Occasional Past Drug Use History: Marijuana General Exam Limitations: no limitations General appearance: alert, in no apparent distress, other (This is a well- developed, well-nourished adult male in no acute distress.) Respiratory exam: Present: normal lung sounds bilaterally. Absent: respiratory distress, wheezes, rales, rhonchi, stridor Cardiovascular Exam: Present: normal rhythm, bradycardia, normal heart sounds. Absent: systolic murmur, diastolic murmur, rubs, gallop, clicks Extremities exam: Present: full ROM, tenderness (Distal radius and ulna), normal capillary refill, other (Mild soft tissue swelling surrounding the left wrist. Skin to the hand is warm and dry. Cap refill less than 3 seconds. Radial p ulses 2+. Full range of motion is intact. Radial, medial, ulnar nerve intact.). Absent: normal inspection, pedal edema, joint swelling, calf tenderness Neurological exam: Present: alert, oriented X3, CN II-XII intact Psychiatric exam: Present: normal affect, normal mood Skin exam: Present: warm, dry, intact, normal color. Absent: rash Course Vital Signs 03/12/21 16:24 Temperature 98 F Pulse Rate 52 L Respiratory 16 Rate Blood Pressure 127/71 O2 Sat by Pulse 98 Oximetry Procedures - Orthopedic Splinting/Casting Injury #1 Side: left Upper Extremity Injury Location: short arm, wrist Upper Extremity Immobilizer: sling/shoulder immobilizer, sugar tong splint, Heladio wrap, synthetic pre-padded splint Medical Decision Making - Medical Decision Making 25-year-old male patient presented for reapplication of splint to the left wrist. Tolerated splint application without difficulty. Neurovascular status was intact. He'll be discharged with orthopedics tomorrow as he has planned. Return parameters were discussed in detail. He verbalizes understanding and agrees with this plan. My attending is Dr. Zepeda. Disposition Clinical Impression: Left radial fracture Disposition: HOME SELF-CARE Condition: Good Instructions (If sedation given, give patient instructions): Wrist Fracture in Adults (ED), Splint Care (ED) Additional Instructions: Follow-up with orthopedics tomorrow as you have planned. Return for any new, worsening, or concerning symptoms. Is patient prescribed a controlled substance at d/c from ED?: No Referrals: None,Stated [Primary Care Provider] - 1-2 days Time of Disposition: 17:08
== END 2021-03-12 17:21 | disposition home or self-care (01) ==
LOC: EC 15:27
DX: S52.502A Unspecified fracture of the lower end of left radius, initial encounter for closed fracture (principal); J45.909 Unspecified asthma, uncomplicated; F12.90 Cannabis use, unspecified, uncomplicated; X58.XXXA Exposure to other specified factors, initial encounter
CPT/HCPCS: 29125; 99283

== ENCOUNTER 2022-04-10 12:40 | Emergency (ER) | payer OTHER ==
[2022-04-10 12:50] VITALS: BP 125/60; PULSE 56; RESP 16; TEMP 98.9
--- NOTE | 2022-04-10 12:56 | ED ---
General Adult HPI - General Chief complaint: Urogenital Stated complaint: Groin Pain Time Seen by Provider: 04/10/22 12:50 Source: patient Mode of arrival: ambulatory Limitations: no limitations - History of Present Illness Initial comments: This note is for advanced triage purposes only. It is not meant to be a comprehensive history/physical: 26 year old male presents to the emergency department with a chief complaint of testicle pain x 5 years. Today he reports that "the muscle" is painful. He has not tried anything for his symptoms. He was recently seen at [facility] for the same. He denies any trauma or periods of long sitting. He denies scrotal swelling, dysuria, hematuria. - Related Data Previous Rx's Medication Instructions Recorded Amoxicillin/Potassium Clav 1 tab PO Q12HR #20 tab 08/08/20 [Augmentin 875-125 Tablet] Ibuprofen [Motrin] 600 mg PO Q8HR PRN #24 tab 03/08/21 Allergies Allergy/AdvReac Type Severity Reaction Status Date / Time No Known Allergies Allergy Verified 04/10/22 12:46 Review of Systems ROS Statement: Those systems with pertinent positive or pertinent negative responses have been documented in the HPI. ROS Other: All systems not noted in ROS Statement are negative. Past Medical History Past Medical History: Asthma Additional Past Medical History / Comment(s): low heart rate History of Any Multi-Drug Resistant Organisms: None Reported Past Surgical History: No Surgical Hx Reported Past Anesthesia/Blood Transfusion Reactions: No Reported Reaction Past Psychological History: No Psychological Hx Reported Smoking Status: Never smoker Past Alcohol Use History: Occasional Past Drug Use History: Marijuana General Exam Limitations: no limitations Course Vital Signs 04/10/22 12:46 Temperature 98.9 F Pulse Rate 56 L Respiratory 16 Rate Blood Pressure 125/60 O2 Sat by Pulse 100 Oximetry Disposition Clinical Impression: Testicular pain Disposition: Left Against Medical Advice Condition: Stable Referrals: None,Stated [Primary Care Provider] - 1-2 days
--- NOTE | 2022-04-10 14:27 | US ---
EXAMINATION TYPE: US scrotum with doppler. Grayscale and color Doppler Duplex imaging performed of asmita aanya scrotum. DATE OF EXAM: 04/10/2022 COMPARISON: CLINICAL HISTORY: testicular pain. Patient states having deep mid scrotal pain that comes and goes. No injury. No swelling. Patient states he had an ultrasound at another facility x 1 month ago that showed a cyst. EXAM MEASUREMENTS: TESTICLES: Right Testicle: 4.8 x 3.3 x 2.5 cm Left Testicle: 4.3 x 3.3 x 2.7 cm EPIDIDYMIS HEAD: Right Epididymis: 0.9 x 1.2 x 1.0 cm Left Epididymis: 1.1 x 1.1 x 0.8 cm Doppler performed to assess for testicular vascularity; good bilateral color flow and waveforms are s een. There is no evidence of testicular torsion. Presence of hydroceles: no Presence of varicoceles: no Left epididymis head cystic lesion = 0.6 x 0.8 x 0.6 cm. IMPRESSION: No evidence of testicular torsion or mass. No free fluid. Small left epididymal cyst noted.
== END 2022-04-10 15:37 | disposition left against medical advice (07) ==
LOC: EC 12:40
DX: N50.819 Testicular pain, unspecified (principal); J45.909 Unspecified asthma, uncomplicated; F12.90 Cannabis use, unspecified, uncomplicated; Z53.29 Procedure and treatment not carried out because of patient's decision for other reasons
CPT/HCPCS: 76870; 93975; 99283

== ENCOUNTER 2022-04-18 23:32 | Emergency (ER) | payer OTHER ==
[2022-04-18 23:42] VITALS: TEMP 98.3
--- NOTE | 2022-04-18 23:55 | ED ---
URI HPI - General Chief Complaint: Upper Respiratory Infection Stated Complaint: Body Aches, Runny nose, Covid Time Seen by Provider: 04/18/22 23:45 Source: patient, RN notes reviewed Mode of arrival: ambulatory Limitations: no limitations - History of Present Illness Initial Comments: Patient is a 26-year-old -[place] male presenting to the emergency room with complaints of sore throat, occasional cough, body aches and loss of taste all ongoing for approximately 2-3 days. He reports known exposure to COVID and is concerned that he is possibly contracted Covid. He denies any chest pain, shortness of breath, abdominal pain, nausea, vomiting, diarrhea, fevers or chills. He is not coated vaccinated. He has a past medical history significant for asthma without recent exacerbation and bradycardia. - Related Data Previous Rx's Medication Instructions Recorded Amoxicillin/Potassium Clav 1 tab PO Q12HR #20 tab 08/08/20 [Augmentin 875-125 Tablet] Ibuprofen [Motrin] 600 mg PO Q8HR PRN #24 tab 03/08/21 Allergies Allergy/AdvReac Type Severity Reaction Status Date / Time No Known Allergies Allergy Verified 04/10/22 12:46 Review of Systems ROS Statement: Those systems with pertinent positive or pertinent negative responses have been documented in the HPI. ROS Other: All systems not noted in ROS Statement are negative. Past Medical History Past Medical History: Asthma Additional Past Medical History / Comment(s): low heart rate History of Any Multi-Drug Resistant Organisms: None Reported Past Surgical History: No Surgical Hx Reported Past Anesthesia/Blood Transfusion Reactions: No Reported Reaction Past Psychological History: No Psychological Hx Reported Smoking Status: Current some day smoker Past Alcohol Use History: Occasional Past Drug Use History: None Reported General Exam - General Exam Comments Initial Comments: GENERAL: No acute distress, well developed, well nourished. HEENT: Normocephalic, atraumatic. Pupils equal, round, reactive to light. Moist mucous membranes. Trace streaking pharyngeal injection without edema or exudate. LUNGS: No respiratory distress. Clear to auscultation, no adventitious sounds, no use of accessory muscles. HEART: Regular rate and rhythm without murmur, rub, or gallop. ABDOMEN: Normal bowel sounds. Soft, non-tender, non-distended. BACK: Normal inspection. EXTREMITIES: No edema. No tenderness. Moves all extremities. NEUROLOGIC: Alert & oriented x 3. CN II-XII grossly intact. PSYCHIATRIC: Normal affect and behavior. DERMATOLOGIC: Skin intact, without rashes or lesions noted. Limitations: no limitations Course Vital Signs 04/18/22 23:38 Temperature 98.3 F Pulse Rate 76 Respiratory 17 Rate Blood Pressure 110/60 O2 Sat by Pulse 100 Oximetry Medical Decision Making - Medical Decision Making Was pt. sent in by a medical professional or institution (, [facility], BACTERIOLOG[facility] [employer], urgent care, hospital, or skilled nursing...) When possible be specific @ -No Did you speak to anyone other than the patient for history (EMS, parent, family, police, friend...)? What history was obtained from this source @ -No Did you review nursing and triage notes (agree or disagree)? Why? @ -I reviewed and agree with nursing and triage notes Were old charts reviewed (outside hosp., previous admission, EMS record, old EKG, old radiological studies, urgent care reports/EKG's, skilled nursing records)? Report findings @ -No old charts were reviewed Differential Diagnosis (chest pain, altered mental status, abdominal pain women, abdominal pain men, vaginal bleeding, weakness, fever, dyspnea, syncope, headache, dizziness, GI bleed, back pain, seizure, CVA, palpatations, mental health)? @ -Differential Upper respiratory symptoms: Pneumonia, viral URI, bronchitis, otitis, sinusitis, streptococcal pharyngitis, mononucleosis, peritonsillar Abscess, retropharyngeal Abscess, epiglottitis, this is not meant to be an all-inclusive list. EKG interpreted by me (3pts min.). @ -None done X-rays interpreted by me (1pt min.). @ -None done CT interpreted by me (1pt min.). @ -None done U/S interpreted by me (1pt. min.). @ -None done What testing was considered but not performed or refused? (CT, X-rays, U/S, labs)? Why? @ -None What meds were considered but not given or refused? Why? @ -None Did you discuss the management of the patient with other professionals (professionals i.e. , [facility], [facility]ACT[employer]IOLOG[facility] [employer], lab, RT, psych nurse, social service technician, lockstitch topstitcher, teacher, safety officer, telehealth case manager)? Give summary @ -No Was smoking cessation discussed for >3mins.? @ -No Was critical care preformed (if so, how long)? @ -No Were there social determinants of health that impacted care today? How? (Homelessness, low income, unemployed, alcoholism, drug addiction, transportation, low edu. Level, literacy, decrease access to med. care, half-way, re hab)? @ -No Was there de-escalation of care discussed even if they declined (Discuss DNR or withdrawal of care, Hospice)? DNR status @ -No What co-morbidities impacted this encounter? (DM, HTN, Smoking, COPD, CAD, Cancer, CVA, ARF, Chemo, Hep., AIDS, mental health diagnosis, sleep apnea, morbid obesity)? @ -None Was patient admitted / discharged? Hospital course, mention meds given and route, prescriptions, significant lab abnormalities, going to OR and other pertinent info. @ -26-year-old -[place] male presenting to the emergency room with complaints of sore throat, occasional cough, body aches and the loss of taste ongoing for approximately 2-3 days after known exposure to COVID. Hemodynamically stable with no distress on exam. No indication for diagnostic imaging. No indication for serum testing or medication administration. Will obtain 4-plex swabs for COVID, influenza and RSV. Viral swab negative for Covid, flu and RSV. No indication for further testing. Findings discussed with patient. Advised likelihood of viral upper respiratory infection given duration of symptoms. With COVID recent exposure despite negative covid testing possibility of developing Covid positivity persist. Education regarding symptomatic management of upper respiratory symptoms. Return parameters to the emergency room discussed. Questions and concerns answered. Will discharge patient home in stable condition with symptomatic management of his upper respiratory symptoms. Undiagnosed new problem with uncertain prognosis? @ -No Drug Therapy requiring intensive monitoring for toxicity (Heparin, Nitro, Insulin, Cardizem)? @ -No Were any procedures done? @ -No Diagnosis/symptom? @ -Viral upper respiratory infection Acute, or Chronic, or Acute on Chronic? @ -Acute Uncomplicated (without systemic symptoms) or Complicated (systemic symptoms)? @ -Uncomplicated Side effects of treatment? @ -No Exacerbation, Progression, or Severe Exacerbation? @ -No Poses a threat to life or bodily function? How? (Chest pain, [place], [place], pneumonia, PE, COPD, DKA, ARF, appy, cholecystitis, CVA, Diverticulitis, Homicidal, Suicidal, threat to staff... and all critical care pts) @ -No Case discussed with Dr. Fuentes - Lab Data Lab Results 04/18/22 Range/Units 23:54 Influenza Type A (PCR) Not Detected (Not Detectd) Influenza Type B (PCR) Not Detected (Not Detectd) RSV (PCR) Not Detected (Not Detectd) SARS-CoV-2 (PCR) Not Detected (Not Detectd) Disposition Clinical Impression: Viral URI Disposition: HOME SELF-CARE Condition: Stable Instructions (If sedation given, give patient instructions): Upper Respiratory Infection (ED) Additional Instructions: Please use [id number] Tylenol or ibuprofen as needed for pain. Please follow-up with your primary care provider. Please return to the Emergency Department if symptoms worsen or any other concerns. Is patient prescribed a controlled substance at d/c from ED?: No Referrals: None,Stated [Primary Care Provider] - 1-2 days Time of Disposition: 01:07
[2022-04-19 01:14] VITALS: BP 118/63; PULSE 65; RESP 18
== END 2022-04-19 01:13 | disposition home or self-care (01) ==
LOC: EC 23:32
DX: J06.9 Acute upper respiratory infection, unspecified (principal); F17.200 Nicotine dependence, unspecified, uncomplicated; J45.909 Unspecified asthma, uncomplicated; Z20.822 Contact with and (suspected) exposure to COVID-19
CPT/HCPCS: 87636; 99283

== ENCOUNTER 2022-12-06 04:07 | Emergency (ER) | payer OTHER ==
[2022-12-06 04:14] VITALS: BP 111/74; PULSE 73; RESP 18; TEMP 98.3
--- NOTE | 2022-12-06 04:25 | ED ---
ENT HPI - General Chief complaint: Dental/Oral Stated complaint: toothache Time Seen by Provider: 12/06/22 04:21 Source: patient, RN notes reviewed, old records reviewed Mode of arrival: ambulatory Limitations: no limitations - History of Present Illness Initial comments: This is a 27-year-old male to the emergency department today for evaluation pain facial pain dental tooth pain right lower dental tooth pain without fracture. No fevers increased and swelling of the face and mouth. Patient is on antibiotics but is recent amount of pain medication. Patient's pain is severe and unable to sleep tonstacy FREEMAN complaint: tooth pain, sore throat -: days(s) Severity: moderate Severity scale (1-10): 4 Quality: stabbing Consistency: constant Improves with: none Worsens with: none Context- Dental: history of dental caries, poor dental care Associated Symptoms: pain with swallowing - Related Data Home Medications Medication Instructions Recorded Confirmed No Known Home Medications 06/11/22 06/11/22 Allergies Allergy/AdvReac Type Severity Reaction Status Date / Time No Known Allergies Allergy Verified 06/11/22 16:43 Review of Systems ROS Statement: Those systems with pertinent positive or pertinent negative responses have been documented in the HPI. ROS Other: All systems not noted in ROS Statement are negative. Past Medical History Past Medical History: Asthma Additional Past Medical History / Comment(s): low heart rate History of Any Multi-Drug Resistant Organisms: None Reported Past Surgical History: No Surgical Hx Reported Past Anesthesia/Blood Transfusion Reactions: No Reported Reaction Past Psychological History: No Psychological Hx Reported Smoking Status: Vaper Past Alcohol Use History: Occasional Past Drug Use History: Marijuana General Exam Limitations: no limitations General appearance: alert, in no apparent distress Head exam: Present: atraumatic, normocephalic, normal inspection Eye exam: Present: normal appearance, PERRL, EOMI. Absent: scleral icterus, conjunctival injection, periorbital swelling ENT exam: Present: normal exam, mucous membranes moist, other (Patient does have dental disease and dental caries) Neck exam: Present: normal inspection. Absent: tenderness, meningismus, lymphadenopathy Respiratory exam: Present: normal lung sounds bilaterally. Absent: respiratory distress, wheezes, rales, rhonchi, stridor Cardiovascular Exam: Present: regular rate, normal rhythm, normal heart sounds. Absent: systolic murmur, diastolic murmur, rubs, gallop, clicks GI/Abdominal exam: Present: soft, normal bowel sounds. Absent: distended, tenderness, guarding, rebound, rigid Extremities exam: Present: normal inspection, full ROM, normal capillary refill. Absent: tenderness, pedal edema, joint swelling, calf tenderness Back exam: Present: normal inspection Neurological exam: Present: alert, oriented X3, CN II-XII intact Psychiatric exam: Present: normal affect, normal mood Skin exam: Present: warm, dry, intact, normal color. Absent: rash Course Vital Signs 12/06/22 04:11 Temperature 98.3 F Pulse Rate 73 Respiratory 18 Rate Blood Pressure 111/74 O2 Sat by Pulse 98 Oximetry - Reevaluation(s) Reevaluation #1: 12/06/22 04:31 Record is reviewed Reevaluation #2: 12/06/22 04:31 Patient symptoms are unchanged Reevaluation #3: 12/06/22 04:31 Patient informed results questions answered Reevaluation #4: 12/06/22 04:30 Was pt. sent in by a medical professional or institution (JASSON Graham, INLAYER, urgent care, hospital, or detention...) When possible be specific @ -no Did you speak to anyone other than the patient for history (EMS, parent, family, police, friend...)? What history was obtained from this source @ -no Did you review nursing and triage notes (agree or disagree)? Why? @ -agree Are old charts reviewed (outside hosp., previous admission, EMS record, old EKG, old radiological studies, urgent care reports/EKG's, detention records)? Report findings @ -yes Differential Diagnosis (chest pain, altered mental status, abdominal pain women, abdominal pain men, vaginal bleeding, weakness, fever, dyspnea, syncope, headache, dizziness, GI bleed, back pain, seizure, CVA, palpatations, mental health, musculoskeletal)? @ -prior EKG interpreted by me (3pts min.). @ -no X-rays interpreted by me (1pt min.). @ -no CT interpreted by me (1pt min.). @ -no U/S interpreted by me (1pt. min.). @ -no What testing was considered but not performed or refused? (CT, X-rays, U/S, labs)? Why? @ -none What meds were considered but not given or refused? Why? @ -none Did you discuss the management of the patient with other professionals (professionals i.e. , PA, INLAYER, lab, RT, psych nurse, executive secretary social welfare, geothermal field technician, teacher, credit compliance officer, family caseworker)? Give summary @ -no Was smoking cessation discussed for >3mins.? @ -no Was critical care preformed (if so, how long)? @ -no Were there social determinants of health that impacted care today? How? (Homelessness, low income, unemployed, alcoholism, drug addiction, transportation, low edu. Level, literacy, decrease access to med. care, shelter, rehab)? @ -none Was there de-escalation of care discussed even if they declined (Discuss DNR or withdrawal of care, Hospice)? DNR status @ -no What co-morbidities impacted this encounter? (DM, HTN, Smoking, COPD, CAD, Cancer, CVA, ARF, Chemo, Hep., AIDS, mental health diagnosis, sleep apnea, morbid obesity)? @ -none Was patient admitted / discharged? Hospital course, mention meds given and route, prescriptions, significant lab abnormalities, going to OR and other pertinent info. @ - 27 male with dental pain. Pain is controlled, patient will be given pain medication for Discharge continue Augmentin Discharge Undiagnosed new problem with uncertain prognosis? @ -no Drug Therapy requiring intensive monitoring for toxicity (Heparin, Nitro, Insulin, Cardizem)? @ -no Were any procedures done? @ -no Diagnosis/symptom? @ -Dental caries dental abscess pain control Acute, or Chronic, or Acute on Chronic? @ -Acute Uncomplicated (without systemic symptoms) or Complicated (systemic symptoms)? @ -Complicated Side effects of treatment? @ -no Exacerbation, Progression, or Severe Exacerbation? @ -exacerbation Poses a threat to life or bodily function? How? (Chest pain, [place], [place], pneumonia, PE, COPD, DKA, ARF, appy, cholecystitis, CVA, Diverticulitis, Homicidal, Suicidal, threat to staff... and all critical care pts) @ -no Medical Decision Making - Medical Decision Making 27 male with dental pain. Pain is controlled, patient will be given pain medication for Discharge continue Augmentin Disposition Clinical Impression: Dental abscess, Dental caries Disposition: HOME SELF-CARE Condition: Good Instructions (If sedation given, give patient instructions): Dental Abscess (ED), Toothache (ED) Is patient prescribed a controlled substance at d/c from ED?: No Referrals: None,Stated [Primary Care Provider] - 1-2 days Time of Disposition: 04:30
[2022-12-06] MEDS ORDERED: Acetaminophen-Codeine 300-30mg TAB PO STA (04:29)
[2022-12-06] MEDS ORDERED: traMADol 50 MG STARTER PACK 3 TAB BTL PO STA (04:29)
[2022-12-06] MEDS ORDERED: ACET/COD 300 MG/30 MG STARTER PACK 6 TAB BTL PO STA (04:29)
== END 2022-12-06 04:43 | disposition home or self-care (01) ==
LOC: EC 04:07
DX: K04.7 Periapical abscess without sinus (principal); K02.9 Dental caries, unspecified; J45.909 Unspecified asthma, uncomplicated; F17.290 Nicotine dependence, other tobacco product, uncomplicated; F12.90 Cannabis use, unspecified, uncomplicated
CPT/HCPCS: 99282

== ENCOUNTER 2023-02-10 06:54 | Emergency (ER) | payer OTHER ==
[2023-02-10] MEDS ORDERED: ONDANSETRON 4 MG/2 ML VIAL IVP STA (07:21)
[2023-02-10] MEDS ORDERED: SODIUM CHLORIDE 0.9% 1,000 ML IV STA (07:21)
[2023-02-10 07:31] VITALS: RESP 18; TEMP 98
--- NOTE | 2023-02-10 07:33 | ED ---
Nausea/Vomiting/Diarrhea HPI - General Chief complaint: Nausea/Vomiting/Diarrhea Stated complaint: Overdose Source: patient Mode of arrival: wheelchair Limitations: no limitations - History of Present Illness Initial comments: The patient is a 27-year-old gentleman who presents emergency room with complaints of nausea vomiting and fatigue. Patient states he accidentally took 21 mg tablets of Xanax thinking they were Aleve around 9 PM last night. Patient woke up this morning with nausea and vomiting. Vomited last prior to arrival emergency room. Denies any new pain however has been recently treated for a left lower molar dental abscess. Patient was prescribed penicillin however has not picked it up and his grandma gave him an unknown antibiotic which he took in addition to Naprosyn last night. He believed he was taking the Aleve when he grabbed Xanax accident. He is alert and oriented but very tired in the emergency room. - Related Data Previous Rx's Medication Instructions Recorded Ondansetron Odt [Zofran Odt] 4 mg PO Q8HR PRN #18 tab 02/10/23 Allergies Allergy/AdvReac Type Severity Reaction Status Date / Time No Known Allergies Allergy Verified 06/11/22 16:43 Review of Systems ROS Statement: Those systems with pertinent positive or pertinent negative responses have been documented in the HPI. ROS Other: All systems not noted in ROS Statement are negative. Past Medical History Past Medical History: Asthma Additional Past Medical History / Comment(s): low heart rate History of Any Multi-Drug Resistant Organisms: None Reported Past Surgical History: No Surgical Hx Reported Past Anesthesia/Blood Transfusion Reactions: No Reported Reaction Past Psychological History: No Psychological Hx Reported Smoking Status: Vaper Past Alcohol Use History: Occasional Past Drug Use History: Marijuana General Exam Limitations: no limitations General appearance: alert, lethargic Head exam: Present: atraumatic Eye exam: Present: normal appearance, PERRL ENT exam: Present: normal exam, other (poor dentition throughout) Neck exam: Present: normal inspection, full ROM Respiratory exam: Present: normal lung sounds bilaterally Cardiovascular Exam: Present: regular rate, normal rhythm GI/Abdominal exam: Present: soft Extremities exam: Present: full ROM Back exam: Present: full ROM Neurological exam: Present: alert, oriented X3, CN II-XII intact Psychiatric exam: Present: normal affect, normal mood Skin exam: Present: warm, dry Course Vital Signs 02/10/23 07:04 Temperature 98 F Pulse Rate 56 L Respiratory 18 Rate Blood Pressure 144/79 O2 Sat by Pulse 99 Oximetry - Reevaluation(s) Reevaluation #1: 02/10/23 09:23 Reevaluation patient is feeling better at this time. He has not had any further vomiting in the emergency room and has been able to tolerate Gatorade. He is also more alert and awake at this time. Patient did receive Zofran and fluids emergency room. I discussed management including taking his future antibiotics with a full stomach and a lot of water. Discussed not taking his grandmother's medications at this time. He understands agrees to treatment and discharge. Medical Decision Making - Medical Decision Making Was pt. sent in by a medical professional or institution (, PA, MANAGER COMPENSATION, urgent ca re, hospital, or [facility]...) When possible be specific @ -[No] Did you speak to anyone other than the patient for history (EMS, parent, family, police, friend...)? What history was obtained from this source @ -[No] Did you review nursing and triage notes (agree or disagree)? Why? @ -[I reviewed and agree with nursing and triage notes] Were old charts reviewed (outside hosp., previous admission, EMS record, old EKG, old radiological studies, urgent care reports/EKG's, [facility] records)? Report findings @ -Yes old charts including recent dental abscess ED visit were reviewed Differential Diagnosis (chest pain, altered mental status, abdominal pain women, abdominal pain men, vaginal bleeding, weakness, fever, dyspnea, syncope, h eadache, dizziness, GI bleed, back pain, seizure, CVA, palpatations, mental health, musculoskeletal)? @ -Gastroenteritis, nausea, vomiting, medication overdose, adverse effects of medication EKG interpreted by me (3pts min.). @ -[As above] X-rays interpreted by me (1pt min.). @ -[None done] CT interpreted by me (1pt min.). @ -[None done] U/S interpreted by me (1pt. min.). @ -[None done] What testing was considered but not performed or refused? (CT, X-rays, U/S, labs)? Why? @ -[None] What meds were considered but not given or refused? Why? @ -[None] Did you discuss the management of the patient with other professionals (eloy henning i.e. , PA, MANAGER COMPENSATION, lab, RT, psych nurse, social work manager, procurement consultant, teacher, global safety officer, case filler)? Give summary @ -[No] Was smoking cessation discussed for >3mins.? @ -[No] Was critical care preformed (if so, how long)? @ -[No] Were there social determinants of health that impacted care today? How? (Homelessness, low income, unemployed, alcoholism, drug addiction, transpo rtation, low edu. Level, literacy, decrease access to med. care, [facility], rehab)? @ -[No] Was there de-escalation of care discussed even if they declined (Discuss DNR or withdrawal of care, Hospice)? DNR status @ -[No] What co-morbidities impacted this encounter? (DM, HTN, Smoking, COPD, CAD, Cancer, CVA, ARF, Chemo, Hep., AIDS, mental health diagnosis, sleep apnea, morbid obesity)? @ -[None] Was patient admitted / discharged? Hospital course, mention meds given and route, prescriptions, significant lab abnormalities, going to OR and other pertinent info. @ -Patient's labs shows mild dehydration but is otherwise unremarkable. There is no leukocytosis. He is feeling better at this time and is able to hold down fluids. He is stable to follow up as an outpatient as needed. Undiagnosed new problem with uncertain prognosis? @ -[No] Drug Therapy requiring intensive monitoring for toxicity (Heparin, Nitro, Insulin, Cardizem)? @ -[No] Were any procedures done? @ -[No] Diagnosis/symptom? @ -Vomiting, mental medication overdose/ingestion, dental abscess Acute, or Chronic, or Acute on Chronic? @ -Acute Uncomplicated (without systemic symptoms) or Complicated (systemic symptoms)? @ -[default] Side effects of treatment? @ -[No] Exacerbation, Progression, or Severe Exacerbation? @ -[No] Poses a threat to life or bodily function? How? (Chest pain, [place], [place], pneumonia, PE, COPD, DKA, ARF, appy, cholecystitis, CVA, Diverticulitis, Homicidal, Suicidal, threat to staff... and all critical care pts) @ -[No] - Lab Data Result diagrams: 02/10/23 07:25 02/10/23 07:25 Lab Results 02/10/23 02/10/23 Range/Units 07:25 07:25 WBC 7.9 (3.8-10.6) k/uL RBC 4.46 (4.30-5.90) m/uL Hgb 13.6 (13.0-17.5) gm/dL Hct 40.5 (39.0-53.0) % MCV 90.9 (80.0-100.0) fL MCH 30.4 (25.0-35.0) pg MCHC 33.5 (31.0-37.0) g/dL RDW 13.1 (11.5-15.5) % Plt Count 216 (150-450) k/uL MPV 7.7 Neutrophils % 68 % Lymphocytes % 23 % Monocytes % 6 % Eosinophils % 2 % Basophils % 0 % Neutrophils # 5.4 (1.3-7.7) k/uL Lymphocytes # 1.8 (1.0-4.8) k/uL Monocytes # 0.5 (0-1.0) k/uL Eosinophils # 0.2 (0-0.7) k/uL Basophils # 0.0 (0-0.2) k/uL Sodium 140 (137-145) mmol/L Potassium 4.1 (3.5-5.1) mmol/L Chloride 101 (98-107) mmol/L Carbon Dioxide 27 (22-30) mmol/L Anion Gap 12 mmol/L BUN 8 L (9-20) mg/dL Creatinine 1.09 (0.66-1.25) mg/dL Est GFR (CKD-EPI)AfAm >90 (>60 ml/min/1.73 sqM) Est GFR (CKD-EPI)NonAf >90 (>60 ml/min/1.73 sqM) Glucose 114 H (74-99) mg/dL Calcium 10.0 (8.4-10.2) mg/dL Total Bilirubin 0.8 (0.2-1.3) mg/dL AST 31 (17-59) U/L ALT 18 (4-49) U/L Alkaline Phosphatase 53 (38-126) U/L Total Protein 8.1 (6.3-8.2) g/dL Albumin 4.8 (3.5-5.0) g/dL Lipase 49 (23-300) U/L Disposition Clinical Impression: Vomiting, Accidental drug ingestion, Medication overdose Disposition: HOME SELF-CARE Condition: Good Instructions (If sedation given, give patient instructions): Acute Nausea and Vomiting (ED) Prescriptions: Ondansetron Odt [Zofran Odt] 4 mg PO Q8HR PRN #18 tab PRN Reason: Nausea Is patient prescribed a controlled substance at d/c from ED?: No When asked, does pt state using other controlled substances?: No If prescribed controlled substance>3 days was MAPS reviewed?: No Referrals: None,Stated [Primary Care Provider] - 1-2 days Time of Disposition: 09:26
[2023-02-10 07:35] LABS: Basophils % (A) 0 %; Eosinophils # (A) 0.2 k/uL (0-0.7); Eosinophils % (A) 2 %; HCT 40.5 % (39.0-53.0); HGB 13.6 gm/dL (13.0-17.5); Lymphocytes # (A) 1.8 k/uL (1.0-4.8); Lymphocytes % (A) 23 %; MCH 30.4 pg (25.0-35.0); MCHC 33.5 g/dL (31.0-37.0); MCV 90.9 fL (80.0-100.0); Mean Platelet Volume 7.7; Monocytes # (A) 0.5 k/uL (0-1.0); Monocytes % (A) 6 %; Neutrophils # (A) 5.4 k/uL (1.3-7.7); Neutrophils % (A) 68 %; Platelet Count 216 k/uL (150-450); RBC 4.46 m/uL (4.30-5.90); RDW 13.1 % (11.5-15.5); WBC 7.9 k/uL (3.8-10.6)
[2023-02-10 08:04] LABS: ALT 18 U/L (4-49); AST 31 U/L (17-59); African American GFR (CKD) >90 (>60 ml/min/1.73 sqM); Albumin 4.8 g/dL (3.5-5.0); Alkaline Phosphatase 53 U/L (38-126); Anion Gap 12 mmol/L; Blood Urea Nitrogen 8 mg/dL (9-20); Carbon Dioxide 27 mmol/L (22-30); Chloride 101 mmol/L (98-107); Glucose 114 mg/dL (74-99); Lipase 49 U/L (23-300); Non-African American GFR(CKD) >90 (>60 ml/min/1.73 sqM); Potassium 4.1 mmol/L (3.5-5.1); Sodium 140 mmol/L (137-145); Total Bilirubin 0.8 mg/dL (0.2-1.3); Total Protein 8.1 g/dL (6.3-8.2)
[2023-02-10 09:46] VITALS: BP 132/84; PULSE 63
== END 2023-02-10 10:06 | disposition home or self-care (01) ==
LOC: EC 06:54
DX: T42.4X1A Poisoning by benzodiazepines, accidental (unintentional), initial encounter (principal); R11.2 Nausea with vomiting, unspecified; J45.909 Unspecified asthma, uncomplicated; F12.90 Cannabis use, unspecified, uncomplicated; F17.290 Nicotine dependence, other tobacco product, uncomplicated
CPT/HCPCS: 36415; 80053; 83690; 85025; 99284; 96374; 96361; J2405

== ENCOUNTER 2023-04-20 21:28 | Emergency (ER) | payer OTHER ==
--- NOTE | 2023-04-20 22:35 | ED ---
General Adult HPI - General Chief complaint: Extremity Problem,Nontraumatic Stated complaint: Stitches in right hand came out Time Seen by Provider: 04/20/23 22:16 Source: patient, RN notes reviewed Mode of arrival: ambulatory Limitations: no limitations - History of Present Illness Initial comments: 27-year-old male presents emergency department for evaluation of muscle infection around the sutures on his right ring finger. He states that he noticed some redness 2 days ago. The sutures have been in for 1 week. He admits to swelling. Denies fever, chills, nausea, vomiting. - Related Data Previous Rx's Medication Instructions Recorded Ondansetron Odt [Zofran Odt] 4 mg PO Q8HR PRN #18 tab 02/10/23 Cephalexin [Keflex] 500 mg PO Q6HR #40 cap 04/20/23 Allergies Allergy/AdvReac Type Severity Reaction Status Date / Time No Known Allergies Allergy Verified 04/20/23 22:15 Review of Systems ROS Statement: Those systems with pertinent positive or pertinent negative responses have been documented in the HPI. ROS Other: All systems not noted in ROS Statement are negative. Past Medical History Past Medical History: Asthma Additional Past Medical History / Comment(s): low heart rate History of Any Multi-Drug Resistant Organisms: None Reported Past Surgical History: No Surgical Hx Reported Past Anesthesia/Blood Transfusion Reactions: No Reported Reaction Past Psychological History: No Psychological Hx Reported Smoking Status: Current every day smoker, Vaper Past Alcohol Use History: Occasional Past Drug Use History: Marijuana General Exam Limitations: no limitations General appearance: alert, in no apparent distress Head exam: Present: atraumatic, normocephalic, normal inspection Eye exam: Present: normal appearance, PERRL, EOMI. Absent: scleral icterus, conjunctival injection, periorbital swelling ENT exam: Present: normal exam, mucous membranes moist Neck exam: Present: normal inspection. Absent: tenderness, meningismus, lymphadenopathy Respiratory exam: Present: normal lung sounds bilaterally. Absent: respiratory distress, wheezes, rales, rhonchi, stridor Cardiovascular Exam: Present: regular rate, normal rhythm, normal heart sounds. Absent: systolic murmur, diastolic murmur, rubs, gallop, clicks Extremities exam: Present: full ROM, normal capillary refill, other (Radial pulses 2+, edema and warmth to the medial aspect of the fourth digit of the right hand where 4 stitches are intact. Sutures were removed.). Absent: tenderness, pedal edema, joint swelling, calf tenderness Neurological exam: Present: alert, oriented X3 Psychiatric exam: Present: normal affect, normal mood Skin exam: Present: warm, dry, other (edema and warmth to the medial aspect of the fourth digit of the right hand where 4 stitches are intact. Sutures were removed). Absent: intact, normal color Course Vital Signs 04/20/23 04/20/23 22:12 23:23 Temperature 98 F 97.4 F L Pulse Rate 65 63 Respiratory 18 15 Rate Blood Pressure 114/68 110/71 O2 Sat by Pulse 100 99 Oximetry Medical Decision Making - Medical Decision Making Was pt. sent in by a medical professional or institution (, JASSON, ERGONOMICS CONSULTANT, urgent care, hospital, or long-term...) When possible be specific @ -No Did you speak to anyone other than the patient for history (EMS, parent, family, police, friend...)? What history was obtained from this source @ -No Did you review nursing and triage notes (agree or disagree)? Why? @ -I reviewed and agree with nursing and triage notes Were old charts reviewed (outside hosp., previous admission, EMS record, old EKG, old radiological studies, urgent care reports/EKG's, long-term records)? Report findings @ -No old charts were reviewed Differential Diagnosis (chest pain, altered mental status, abdominal pain women, abdominal pain men, vaginal bleeding, weakness, fever, dyspnea, syncope, headache, dizziness, GI bleed, back pain, seizure, CVA, palpatations, mental health, musculoskeletal)? @ -soft tissue infection, abscess, osteomyelitis, this list is not all inclusive EKG interpreted by me (3pts min.). @ -none X-rays interpreted by me (1pt min.). @ -X-ray of the right fourth finger shows no acute process CT interpreted by me (1pt min.). @ -None done U/S interpreted by me (1pt. min.). @ -None done What testing was considered but not performed or refused? (CT, X-rays, U/S, labs)? Why? @ -None What meds were considered but not given or refused? Why? @ -None Did you discuss the management of the patient with other professionals (professionals i.e. , PA, ERGONOMICS CONSULTANT, lab, RT, psych nurse, social worker psychiatric, automatic spooler operator, teacher, sailing officer, manager case)? Give summary @ -No Was smoking cessation discussed for >3mins.? @ -No Was critical care preformed (if so, how long)? @ -No Were there social determinants of health that impacted care today? How? (Homelessness, low income, unemployed, alcoholism, drug addiction, transportation, low edu. Level, literacy, decrease access to med. care, senior care, rehab)? @ -No Was there de-escalation of care discussed even if they declined (Discuss DNR or withdrawal of care, Hospice)? DNR status @ -No What co-morbidities impacted this encounter? (DM, HTN, Smoking, COPD, CAD, Cancer, CVA, ARF, Chemo, Hep., AIDS, mental health diagnosis, sleep apnea, morbid obesity)? @ -None Was patient admitted / discharged? Hospital course, mention meds given and route, prescriptions, significant lab abnormalities, going to OR and other pertinent info. @ -discharged Patient presented to the emergency department for sutures that fell out and possible infection around sutures in the right fourth finger. He notes redness to the area 2 days. He denies fever, chills. Reports normal range of motion to the finger. Edges were removed. Patient given a dose of Keflex in the emergency department and prescription sent to the patient's pharmacy. Advised patient to tile picker medication and take to completion. Patient understands and agreeable with plan. Strict return precautions discussed. Case discussed with Dr. Meraz who also evaluated the patient and agrees with plan. Undiagnosed new problem with uncertain prognosis? @ -No Drug Therapy requiring intensive monitoring for toxicity (Heparin, Nitro, Insulin, Cardizem)? @ -No Were any procedures done? @ -suture removal Diagnosis/symptom? @ -soft tissue infection Acute, or Chronic, or Acute on Chronic? @ -acute Uncomplicated (without systemic symptoms) or Complicated (systemic symptoms)? @ -uncomplicated Side effects of treatment? @ -No Exacerbation, Progression, or Severe Exacerbation? @ -No Poses a threat to life or bodily function? How? (Chest pain, [place], [place], pneumonia, PE, COPD, DKA, ARF, appy, cholecystitis, CVA, Diverticulitis, Homicidal, Suicidal, threat to staff... and all critical care pts) @ -No Disposition Clinical Impression: Soft tissue infection Disposition: HOME SELF-CARE Condition: Stable Instructions (If sedation given, give patient instructions): Cellulitis (ED) Additional Instructions: Please tile picker antibiotics and take to completion. Follow up with your primary care provider. Return to the emergency department for new or worsening symptoms. Prescriptions: Cephalexin [Keflex] 500 mg PO Q6HR #40 cap Is patient prescribed a controlled substance at d/c from ED?: No Referrals: None,Stated [Primary Care Provider] - 1-2 days Felicita Mancuso DO [Doctor of Osteopathic Medicine] - 1-2 days
--- NOTE | 2023-04-20 22:50 | XR ---
EXAM: XR Right Fingers, 2 or More Views CLINICAL HISTORY: ITS.REASON XR Reason: 4th finger TECHNIQUE: Frontal, lateral and oblique views of the fingers of the right hand. COMPARISON: No relevant prior studies available. FINDINGS: Bones/joints: Unremarkable. No acute fracture. No dislocation. Soft tissues: Unremarkable. No radiopaque foreign body. IMPRESSION: Normal x-rays of the visualized right fingers.
[2023-04-20] MEDS ORDERED: BACITRACIN OINT 1 EACH PACKET TOPICAL ONE (23:02)
[2023-04-20] MEDS ORDERED: CEPHALEXIN 500 MG CAP PO STA (23:02)
[2023-04-20 23:32] VITALS: BP 110/71; PULSE 63; RESP 15; TEMP 97.4
== END 2023-04-20 23:23 | disposition home or self-care (01) ==
LOC: EC 21:28
DX: L08.9 Local infection of the skin and subcutaneous tissue, unspecified (principal); R60.0 Localized edema; Z48.02 Encounter for removal of sutures; J45.909 Unspecified asthma, uncomplicated; F17.290 Nicotine dependence, other tobacco product, uncomplicated; F12.90 Cannabis use, unspecified, uncomplicated
CPT/HCPCS: 99283

== ENCOUNTER 2023-09-20 18:43 | Emergency (ER) | payer OTHER ==
[2023-09-20 18:48] VITALS: RESP 18
--- NOTE | 2023-09-20 20:19 | ED ---
General Adult HPI - General Chief complaint: Extremity Injury, Lower Stated complaint: r foot abscess Time Seen by Provider: 09/20/23 19:25 Source: patient, RN notes reviewed Mode of arrival: ambulatory Limitations: no limitations - History of Present Illness Initial comments: 27-year-old male presenting to the ED with a chief complaint of right foot pain. Patient reports pain to his right foot "for a while". States that his foot has been hurting "type shit for real, for real". Patient reports was seen by a specialist for this and was told that it was a bunion. States that he was supposed to get surgery for this however he has not been called back to schedule this prompting presentation to the ED for further evaluation. Patient also notes that he does not have any pain medications at home. Denies any recent injury or trauma. No fever or chills. No other complaints at this time. - Related Data Previous Rx's Medication Instructions Recorded Ondansetron Odt [Zofran Odt] 4 mg PO Q8HR PRN #18 tab 02/10/23 Cephalexin [Keflex] 500 mg PO Q6HR #40 cap 04/20/23 Allergies Allergy/AdvReac Type Severity Reaction Status Date / Time No Known Allergies Allergy Verified 09/20/23 18:48 Review of Systems ROS Statement: Those systems with pertinent positive or pertinent negative responses have been documented in the HPI. ROS Other: All systems not noted in ROS Statement are negative. Past Medical History Past Medical History: Asthma Additional Past Medical History / Comment(s): low heart rate History of Any Multi-Drug Resistant Organisms: None Reported Past Surgical History: No Surgical Hx Reported Past Anesthesia/Blood Transfusion Reactions: No Reported Reaction Past Psychological History: No Psychological Hx Reported Smoking Status: Current every day smoker, Vaper Past Alcohol Use History: Occasional Past Drug Use History: Marijuana General Exam Limitations: no limitations General appearance: alert, in no apparent distress Eye exam: Present: normal appearance Neck exam: Present: normal inspection Respiratory exam: Present: normal lung sounds bilaterally Cardiovascular Exam: Present: regular rate GI/Abdominal exam: Present: soft Extremities exam: Present: other (Swelling to the medial aspect of the foot at the joint at first metatarsal joint. No overlying skin changes, warmth. DP/PT pulses intact.) Neurological exam: Present: alert, oriented X3 Skin exam: Present: warm, dry Course Vital Signs 09/20/23 18:45 Temperature 97.9 F Pulse Rate 84 Respiratory 18 Rate Blood Pressure 115/62 O2 Sat by Pulse 97 Oximetry Medical Decision Making - Medical Decision Making Was pt. sent in by a medical professional or institution (JASSON Graham, CLINICAL NURSE EDUCATOR, urgent care, hospital, or long term...) When possible be specific @ -No Did you speak to anyone other than the patient for history (EMS, parent, family, police, friend...)? What history was obtained from this source @ -No Did you review nursing and triage notes (agree or disagree)? Why? @ -I reviewed and agree with nursing and triage notes Were old charts reviewed (outside hosp., previous admission, EMS record, old EKG, old radiological studies, urgent care reports/EKG's, long term records)? Report findings @ -No old charts were reviewed Differential Diagnosis (chest pain, altered mental status, abdominal pain women, abdominal pain men, vaginal bleeding, weakness, fever, dyspnea, syncope, headache, dizziness, GI bleed, back pain, seizure, CVA, palpatations, mental health, musculoskeletal)? @ -Differential Musculoskeletal Muscular strain, contusion, ligament sprain, fracture, arthritis, septic arthritis, bursitis, cellulitis, muscle spasm, nerve compression, DVT, arterial occlusion, herpes zoster, electrolyte abnormality, tumor.... This is not meant to be in all inclusive list EKG interpreted by me (3pts min.). @ -None X-rays interpreted by me (1pt min.). @ -None done CT interpreted by me (1pt min.). @ -None done U/S interpreted by me (1pt. min.). @ -None done What testing was considered but not performed or refused? (CT, X-rays, U/S, labs)? Why? @ -None What meds were considered but not given or refused? Why? @ -None Did you discuss the management of the patient with other professionals (professionals i.e. JASSON Graham, CLINICAL NURSE EDUCATOR, lab, RT, psych nurse, social service liaison, glueline worker, teacher, dog license officer supervisor, case liner)? Give summary @ -No Was smoking cessation discussed for >3mins.? @ -No Was critical care preformed (if so, how long)? @ -No Were there social determinants of health that impacted care today? How? (Homelessness, low income, unemployed, alcoholism, drug addiction, transportation, low edu. Level, literacy, decrease access to med. care, snf, rehab)? @ -No Was there de-escalation of care discussed even if they declined (Discuss DNR or withdrawal of care, Hospice)? DNR status @ -No What co-morbidities impacted this encounter? (DM, HTN, Smoking, COPD, CAD, Cancer, CVA, ARF, Chemo, Hep., AIDS, mental health diagnosis, sleep apnea, morbid obesity)? @ -None Was patient admitted / discharged? Hospital course, mention meds given and route, prescriptions, significant lab abnormalities, going to OR and other pertinent info. @ -Discharge 27-year-old male presenting to the ED with complaint of right foot pain ongoing for a while. Reports he was told that this was a bunion by a specialist at prior evaluation and was supposed to have surgery for this however has never received a call to schedule surgery prompting presentation to the ED for further evaluation. Also reports no increases in pain however does not have pain medications at home on examination no wearing findings for injury mention. Patient provided Motrin and Tylenol with prescriptions for each. Advise close follow-up with his specialist. Discussed return precautions with patient who verbalized agreement. Undiagnosed new problem with uncertain prognosis? @ -No Drug Therapy requiring intensive monitoring for toxicity (Heparin, Nitro, Insulin, Cardizem)? @ -No Were any procedures done? @ -No Diagnosis/symptom? @ -Bunion Acute, or Chronic, or Acute on Chronic? @ -Acute Uncomplicated (without systemic symptoms) or Complicated (systemic symptoms)? @ -Uncomplicated Side effects of treatment? @ -No Exacerbation, Progression, or Severe Exacerbation? @ -No Poses a threat to life or bodily function? How? (Chest pain, [place], [place], pneumonia, PE, COPD, DKA, ARF, appy, cholecystitis, CVA, Diverticulitis, Homicidal, Suicidal, threat to staff... and all critical care pts) @ -No Disposition Clinical Impression: Bunion Disposition: HOME SELF-CARE Condition: Good Instructions (If sedation given, give patient instructions): Bunion (ED) Additional Instructions: Please return to the Emergency Department if symptoms worsen or any other concerns. Please follow-up with your specialist. Is patient prescribed a controlled substance at d/c from ED?: No Referrals: None,Stated [Primary Care Provider] - 1-2 days Time of Disposition: 20:24
[2023-09-20] MEDS: IBUPROFEN 800 MG TAB PO STA (20:43)
[2023-09-20] MEDS: ACETAMINOPHEN TAB 500 MG TAB PO STA (20:44)
[2023-09-20] MEDS: IBUPROFEN 600 MG STARTER PACK 4 TAB BTL PO STA (20:45)
[2023-09-20 20:51] VITALS: BP 117/64; PULSE 81; TEMP 98
== END 2023-09-20 21:19 | disposition home or self-care (01) ==
LOC: EC 18:43
DX: M21.611 Bunion of right foot (principal); F17.290 Nicotine dependence, other tobacco product, uncomplicated
CPT/HCPCS: 99283

== ENCOUNTER 2023-10-10 03:14 | Emergency (ER) | payer OTHER ==
[2023-10-10 03:19] VITALS: TEMP 98.4
--- NOTE | 2023-10-10 03:59 | ED ---
General Adult HPI - General Chief complaint: Recheck/Abnormal Lab/Rx Stated complaint: Post Op Complications Time Seen by Provider: 10/10/23 03:23 Source: patient, RN notes reviewed, old records reviewed Mode of arrival: ambulatory Limitations: no limitations - History of Present Illness Initial comments: 27-year-old male presenting as saturated right foot splint. Patient states he had bunion surgery days prior and had a bulky splint placed. He got this wet in the shower and is requesting dressing and splint change. - Related Data Previous Rx's Medication Instructions Recorded Ondansetron Odt [Zofran Odt] 4 mg PO Q8HR PRN #18 tab 02/10/23 Cephalexin [Keflex] 500 mg PO Q6HR #40 cap 04/20/23 Acetaminophen Tab [Tylenol] 500 mg PO Q6H PRN #60 tablet 09/20/23 Ibuprofen [Motrin] 600 mg PO Q8HR PRN #30 tab 09/20/23 Allergies Allergy/AdvReac Type Severity Reaction Status Date / Time No Known Allergies Allergy Verified 10/10/23 03:19 Review of Systems ROS Statement: Those systems with pertinent positive or pertinent negative responses have been documented in the HPI. ROS Other: All systems not noted in ROS Statement are negative. Past Medical History Past Medical History: Asthma Additional Past Medical History / Comment(s): low heart rate History of Any Multi-Drug Resistant Organisms: None Reported Past Surgical History: No Surgical Hx Reported Past Anesthesia/Blood Transfusion Reactions: No Reported Reaction Past Psychological History: No Psychological Hx Reported Smoking Status: Current every day smoker, Vaper Past Alcohol Use History: Occasional Past Drug Use History: Marijuana General Exam Limitations: no limitations General appearance: alert, in no apparent distress Head exam: Present: atraumatic, normocephalic Eye exam: Present: normal appearance, PERRL Respiratory exam: Present: normal lung sounds bilaterally. Absent: respiratory distress Cardiovascular Exam: Present: normal rhythm, bradycardia Extremities exam: Present: other (Splint is removed, the bandages are left intact and splint is replaced.) Course Vital Signs 10/10/23 03:17 Temperature 98.4 F Pulse Rate 41 L Respiratory 22 Rate Blood Pressure 153/76 O2 Sat by Pulse 99 Oximetry Procedures - Orthopedic Splinting/Casting Injury #1 Side: right Lower Extremity Injury Location: foot Lower Extremity Immobilizer: posterior splint Medical Decision Making - Medical Decision Making Was pt. sent in by a medical professional or institution (JASSON Graham, TRUSS MAKER, urgent care, hospital, or skilled nursing...) When possible be specific @ -No Did you speak to anyone other than the patient for history (EMS, parent, family, police, friend...)? What history was obtained from this source @ -No Did you review nursing and triage notes (agree or disagree)? Why? @ -I reviewed and agree with nursing and triage notes Were old charts reviewed (outside hosp., previous admission, EMS record, old EKG, old radiological studies, urgent care reports/EKG's, skilled nursing records)? Report findings @ -No old charts were reviewed Differential Diagnosis saturated splint EKG interpreted by me (3pts min.). @ -As above X-rays interpreted by me (1pt min.). @ -None done CT interpreted by me (1pt min.). @ -None done U/S interpreted by me (1pt. min.). @ -None done What testing was considered but not performed or refused? (CT, X-rays, U/S, labs)? Why? @ -None What meds were considered but not given or refused? Why? @ -None Did you discuss the management of the patient with other professionals (professionals i.e. JASSON Graham, TRUSS MAKER, lab, RT, psych nurse, manager social services, operations superintendent, teacher, sustainability officer, complex case manager)? Give summary @ -No Was smoking cessation discussed for >3mins.? @ -No Was critical care preformed (if so, how long)? @ -No Were there social determinants of health that impacted care today? How? (Homelessness, low income, unemployed, alcoholism, drug addiction, transportation, low edu. Level, literacy, decrease access to med. care, retirement, rehab)? @ -No Was there de-escalation of care discussed even if they declined (Discuss DNR or withdrawal of care, Hospice)? DNR status @ -No What co-morbidities impacted this encounter? (DM, HTN, Smoking, COPD, CAD, Cancer, CVA, ARF, Chemo, Hep., AIDS, mental health diagnosis, sleep apnea, morbid obesity)? @ -None Was patient admitted / discharged? Hospital course, mention meds given and route, prescriptions, significant lab abnormalities, going to OR and other pertinent info. @ -[Splint replaced and the patient will follow-up with his pump assembler. Undiagnosed new problem with uncertain prognosis? @ -No Drug Therapy requiring intensive monitoring for toxicity (Heparin, Nitro, Insulin, Cardizem)? @ -No Were any procedures done? @ -Yes, splinting Diagnosis/symptom? @Water saturated splint Acute, or Chronic, or Acute on Chronic? @Acute Uncomplicated (without systemic symptoms) or Complicated (systemic symptoms)? @ -Default Side effects of treatment? @ -No Exacerbation, Progression, or Severe Exacerbation? @ -No Poses a threat to life or bodily function? How? (Chest pain, [place], [place], pneumonia, PE, COPD, DKA, ARF, appy, cholecystitis, CVA, Diverticulitis, Homicidal, Suicidal, threat to staff... and all critical care pts) @ -No Disposition Clinical Impression: Bunion Disposition: HOME SELF-CARE Condition: Fair Additional Instructions: Please follow-up with your pump assembler. Is patient prescribed a controlled substance at d/c from ED?: No Referrals: None,Stated [Primary Care Provider] - 1-2 days Time of Disposition: 03:59
[2023-10-10 04:25] VITALS: BP 155/76; PULSE 47; RESP 20
== END 2023-10-10 05:33 | disposition home or self-care (01) ==
LOC: EC 03:14
DX: M21.611 Bunion of right foot (principal); F17.290 Nicotine dependence, other tobacco product, uncomplicated
CPT/HCPCS: 29515; 99283

== ENCOUNTER 2024-08-14 17:36 | Emergency (ER) | payer OTHER ==
[2024-08-14 17:45] VITALS: BP 103/70; PULSE 68; RESP 22; TEMP 98
--- NOTE | 2024-08-14 18:01 | ED ---
Extremity Problem HPI - General Chief complaint: Extremity Problem,Nontraumatic Stated complaint: left foot pain Time Seen by Provider: 08/14/24 17:48 Source: patient Mode of arrival: ambulatory Limitations: no limitations - History of Present Illness Initial comments: 28-year-old male presenting with chief complaint of left foot pain. Patient does have a bunion at the center of his pain. He does have some pain that radiates into the big toe. He denies any injury or trauma. Feels similar to pain he had related to bunion on his right foot which he had removed. He does have an appointment with his operating systems specialist on Tuesday but today the pain was so great that he needed to come to the ER. He has had no fever or chills. No swelling. No history of gout. No numbness or tingling. - Related Data Previous Rx's Medication Instructions Recorded Ondansetron Odt [Zofran Odt] 4 mg PO Q8HR PRN #18 tab 02/10/23 Cephalexin [Keflex] 500 mg PO Q6HR #40 cap 04/20/23 Acetaminophen Tab [Tylenol] 500 mg PO Q6H PRN #60 tablet 09/20/23 Ibuprofen [Motrin] 600 mg PO Q8HR PRN #30 tab 09/20/23 Indomethacin [Indocin] 50 mg PO TID #15 capsule 08/14/24 Allergies Allergy/AdvReac Type Severity Reaction Status Date / Time No Known Allergies Allergy Verified 08/14/24 17:45 Review of Systems ROS Statement: Those systems with pertinent positive or pertinent negative responses have been documented in the HPI. ROS Other: All systems not noted in ROS Statement are negative. Past Medical History Past Medical History: Asthma Additional Past Medical History / Comment(s): low heart rate History of Any Multi-Drug Resistant Organisms: None Reported Past Surgical History: No Surgical Hx Reported Past Anesthesia/Blood Transfusion Reactions: No Reported Reaction Past Psychological History: No Psychological Hx Reported Smoking Status: Current every day smoker, Vaper Past Alcohol Use History: Occasional Past Drug Use History: Marijuana General Exam Limitations: no limitations General appearance: alert, in no apparent distress Head exam: Present: atraumatic, normocephalic, normal inspection Eye exam: Present: normal appearance, EOMI Neck exam: Present: normal inspection. Absent: meningismus Respiratory exam: Absent: respiratory distress Cardiovascular Exam: Present: regular rate Left Foot/Toe exam: Present: normal inspection, full ROM, tenderness (Left MTP joint). Absent: swelling, abrasion, deformity Neurovascular tendon exam: Present: no vascular compromise Neurological exam: Present: alert, oriented X3 Psychiatric exam: Present: normal affect, normal mood Skin exam: Present: warm, dry, normal color Course Vital Signs 08/14/24 17:42 Temperature 98.0 F Pulse Rate 68 Respiratory 22 Rate Blood Pressure 103/70 O2 Sat by Pulse 99 Oximetry Medical Decision Making - Medical Decision Making Was pt. sent in by a medical professional or institution (, PA, COMPLIANCE INTERN, urgent care, hospital, or long term...) When possible be specific @ -No Did you speak to anyone other than the patient for history (EMS, parent, family, police, friend...)? What history was obtained from this source @ -No Did you review nursing and triage notes (agree or disagree)? Why? @ -I reviewed and agree with nursing and triage notes Were old charts reviewed (outside hosp., previous admission, EMS record, old EKG, old radiological studies, urgent care reports/EKG's, long term records)? Report findings @ -No old charts were reviewed Differential Diagnosis (chest pain, altered mental status, abdominal pain women, abdominal pain men, vaginal bleeding, weakness, fever, dyspnea, syncope, headache, dizziness, GI bleed, back pain, seizure, CVA, palpatations, mental health, musculoskeletal)? @ -Differential Musculoskeletal Muscular strain, contusion, ligament sprain, fracture, arthritis, septic arthritis, bursitis, cellulitis, muscle spasm, nerve compression, DVT, arterial occlusion, herpes zoster, electrolyte abnormality, tumor.... This is not meant to be in all inclusive list EKG interpreted by me (3pts min.). @ -As above X-rays interpreted by me (1pt min.). @ -None done CT interpreted by me (1pt min.). @ -None done U/S interpreted by me (1pt. min.). @ -None done What testing was considered but not performed or refused? (CT, X-rays, U/S, labs)? Why? @ -None What meds were considered but not given or refused? Why? @ -None Did you discuss the management of the patient with other professionals (professionals i.e. , PA, COMPLIANCE INTERN, lab, RT, psych nurse, medical social worker, children's ministries director, teacher, special skills officer, rifle case repairer)? Give summary @ -No Was smoking cessation discussed for >3mins.? @ -No Was critical care preformed (if so, how long)? @ -No Were there social determinants of health that impacted care today? How? (Homelessness, low income, unemployed, alcoholism, drug addiction, transportation, low edu. Level, literacy, decrease access to med. care, penitentiary, rehab)? @ -No Was there de-escalation of care discussed even if they declined (Discuss DNR or withdrawal of care, Hospice)? DNR status @ -No What co-morbidities impacted this encounter? (DM, HTN, Smoking, COPD, CAD, Cancer, CVA, ARF, Chemo, Hep., AIDS, mental health diagnosis, sleep apnea, morbid obesity)? @ -None Was patient admitted / discharged? Hospital course, mention meds given and route, prescriptions, significant lab abnormalities, going to OR and other pertinent info. @ -28-year-old male presenting with chief complaint of left foot pain no injury or trauma. Pain is over the area of the bunion, pain feels similar to pain he had prior to the bunionectomy on his right side. On examination he is neurovascularly intact. Likely due to the patient's bunion rubbing on his work boots, there may or may not be a degree of gout as well. Patient is educated on today's findings and supportive management at home. Provided with pain medication for home. Instructed to follow-up at his scheduled appointment on Tuesday with his operating systems specialist. Follow-up with PCP. Report back to ER with any new or worsening symptoms. Discussed return parameters and answered all questions. Patient conveyed verbal understanding and agreed to the plan. I discussed this case in detail with my attending Dr. Fuentes Undiagnosed new problem with uncertain prognosis? @ -No Drug Therapy requiring intensive monitoring for toxicity (Heparin, Nitro, Insulin, Cardizem)? @ -No Were any procedures done? @ -No Diagnosis/symptom? @ -Foot pain Acute, or Chronic, or Acute on Chronic? @ -Acute Uncomplicated (without systemic symptoms) or Complicated (systemic symptoms)? @ -Uncomplicated Side effects of treatment? @ -No Exacerbation, Progression, or Severe Exacerbation? @ -No Poses a threat to life or bodily function? How? (Chest pain, [place], [place], pneumonia, PE, COPD, DKA, ARF, appy, cholecystitis, CVA, Diverticulitis, Homicidal, Suicidal, threat to staff... and all critical care pts) @ -Unlikely Disposition Clinical Impression: Bunion Disposition: HOME SELF-CARE Condition: Good Instructions (If sedation given, give patient instructions): Linda (ED) Additional Instructions: Follow-up with your operating systems specialist at your scheduled appointment. Report back to ER with any new or worsening symptoms. Rest ice and elevate the foot. Prescriptions: Indomethacin [Indocin] 50 mg PO TID #15 capsule Is patient prescribed a controlled substance at d/c from ED?: No Referrals: None,Stated [Primary Care Provider] - 1-2 days Time of Disposition: 18:01
[2024-08-14] MEDS: ACET/COD 300 MG/30 MG STARTER PACK 6 TAB BTL PO STA (18:08)
[2024-08-14] MEDS: DEXAMETHASONE SOD PHOSPHATE 10 MG/ML 1 ML VIAL IM STA (18:09)
[2024-08-14] MEDS: KETOROLAC 15 MG/ML 1 ML VIAL IM STA (18:09)
== END 2024-08-14 18:25 | disposition home or self-care (01) ==
LOC: EC 17:36
DX: M21.612 Bunion of left foot (principal); F17.290 Nicotine dependence, other tobacco product, uncomplicated
CPT/HCPCS: 99283; 96372 ×2; J1100; J1885